=== PATIENT | male | born 1980 | race Two or more races ===

== ENCOUNTER 2019-04-14 13:19 | Inpatient (IN) | payer OTHER ==
[2019-04-14 17:44] VITALS: BMI 42.0
[2019-04-14] MEDS ORDERED: ACETAMINOPHEN 325 MG TABLET (FP) PO PRN (18:11)
[2019-04-14] MEDS ORDERED: MAG HYDROX/AL HYDROX/SIMETH 30 ML UNIT-DOSE CUP PO PRN (18:11)
[2019-04-14] MEDS ORDERED: guaiFENesin 200 MG/10 ML 10 ML UNIT-DOSE CUPS PO PRN (18:11)
[2019-04-14] MEDS ORDERED: hydrOXYzine PAMOATE 50 MG CAPSULE (FP) PO PRN (18:11)
[2019-04-14] MEDS ORDERED: MAGNESIUM HYDROX 2400MG/30ML ORAL SUSPENSION 30 ML CUP PO PRN (18:11)
[2019-04-14] MEDS ORDERED: P-EPHED 60MG/TRIPROLIDI 2.5MG TABLET PO PRN (18:11)
[2019-04-14] MEDS ORDERED: IBUPROFEN 400 MG TABLET (FP) PO PRN (18:11)
[2019-04-14] MEDS ORDERED: MAGNESIUM CITRATE 300 ML BOTTLE PO PRN (18:11)
[2019-04-14] MEDS ORDERED: LOPERAMIDE HCL 2 MG CAPSULE PO PRN (18:11)
[2019-04-14] MEDS ORDERED: MENTHOL/PHENOL 1 EACH UD MM PRN (18:11)
--- NOTE | 2019-04-14 18:16 | HP ---
CIWA Score - Admission Criteria OASAS Guidelines: Admission for Medically Managed Detox: Requires at least one of the followin. CIWA greater than 12 2. Seizures within the past 24 hours 3. Delirium tremens within the past 24 hours 4. Hallucinations within the past 24 hours 5. Acute intervention needed for co occurring medical disorder 6. Acute intervention needed for co occurring psychiatric disorder 7. Severe withdrawal that cannot be handled at a lower level of care (continued vomiting, continued diarrhea, abnormal vital signs) requiring intravenous medication and/or fluids 8. Admission ROS [facility] Chief Complaint: alcohol rehabilitation Allergies/Adverse Reactions: Allergies Allergy/AdvReac Type Severity Reaction Status Date / Time No Known Allergies Allergy Verified 04/14/19 17:30 History of Present Illness: 38 yo male with hx of chronic alcohol dependence is here seeking inpatient rehabilitation, patient referred from [facility]. Last detox and rehab January 2019 in [facility]. Patient reports he was admitted on 04/11/19 - 04/14/19 at [facility] ([facility] program). Homeless x 1 month. Patient reports no medical hx aside from obesity. Psych: Bipolar, depression, anxiety and schizophrenia. Reports hx of multiple psych admissions since age 17. 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 Patient denies SI/HI, visual or auditory hallucinations at this time. Exam Limitations: No Limitations - Ebola screening Have you traveled outside of the country in the last 21 days: No Have you had contact with anyone from an Ebola affected area: No Do you have a fever: No - Review of Systems Constitutional: Other (weight gain) EENT: reports: No Symptoms Reported Respiratory: reports: No Symptoms reported Cardiac: reports: No Symptoms Reported GI: reports: No Symptoms Reported : reports: Frequency Musculoskeletal: reports: Back Pain Integumentary: reports: No Symptoms Reported Neuro: reports: No Symptoms reported Endocrine: reports: Increased Thirst, Change in Weight Hematology: reports: No Symptoms Reported Psychiatric: reports: Orientated x3, Anxious Other Systems: Reviewed and Negative Patient History - Patient Medical History Hx Anemia: No Hx Asthma: No Hx Chronic Obstructive Pulmonary Disease (COPD): No Hx Cancer: No Hx Cardiac Disorders: No Hx Congestive Heart Failure: No Hx Hypertension: No Hx Hypercholesterolemia: No Hx Pacemaker: No HX Cerebrovascular Accident: No Hx Seizures: No Hx Diabetes: No Hx Gastrointestinal Disorders: No Hx Liver Disease: No Hx Genitourinary Disorders: No Hx Sexually Transmitted Disorders: No Hx Renal Disease (ESRD): No Hx Thyroid Disease: No Hx Human Immunodeficiency Virus (HIV): No Hx Hepatitis C: No Hx Depression: Yes Hx Suicide Attempt: Yes Hx Bipolar Disorder: Yes Hx Schizophrenia: Yes - Patient Surgical History Past Surgical History: No Hx Neurologic Surgery: No Hx Cataract Extraction: No Hx Cardiac Surgery: No Hx Lung Surgery: No Hx Breast Surgery: No Hx Breast Biopsy: No Hx Abdominal Surgery: No Hx Appendectomy: No Hx Cholecystectomy: No Hx Genitourinary Surgery: No Hx Section: No Hx Orthopedic Surgery: No Anesthesia Reaction: No - PPD History Previous Implant?: No Documented Results: Negative w/o proof Date: 07/07/13 PPD to be Administered?: Yes - Smoking Cessation Smoking history: Current every day smoker Have you smoked in the past 12 months: Yes Aproximately how many cigarettes per day: 5 Hx Chewing Tobacco Use: No Initiated information on smoking cessation: Yes 'Breaking Loose' booklet given: 04/14/19 - Substance & Tx. History Hx Alcohol Use: Yes Hx Substance Use: Yes Substance Use Type: Alcohol Hx Substance Use Treatment: Yes (Last detox and rehab January 2019 in [facility].) - Substances abused Alcohol Substance route: Oral Frequency: Daily Amount used: 6-12 12oz beer Age of first use: 13 Date of last use: 04/11/19 Family Disease History - Family Disease History Family Disease History: Other: Father (FATHER IS ETOH DEPENDENT) Admission Physical Exam BHS - Vital Signs Vital Signs: Vital Signs - 24 hr 04/14/19 17:33 Temperature 97.7 F Pulse Rate 70 Respiratory 18 Rate Blood Pressure 133/91 - Physical General Appearance: Yes: Disheveled (malodorous), Obese, Anxious HEENTM: Yes: EOMI, Hearing grossly Normal, Normal ENT Inspection, Normocephalic , Normal Voice, ROBIN, Pharynx Normal, Tm's normal Respiratory: Yes: Chest Non-Tender, Lungs Clear, Normal Breath Sounds, No Respiratory Distress, No Accessory Muscle Use Neck: Yes: Within Normal Limits Breast: Yes: Breast Exam Deferred Cardiology: Yes: Regular Rhythm, Regular Rate Abdominal: Yes: Normal Bowel Sounds, Soft, Protuberent Genitourinary: Yes: Within Normal Limits Back: Yes: Normal Inspection Musculoskeletal: Yes: full range of Motion, Gait Steady, Pelvis Stable Extremities: Yes: Normal Capillary Refill, Normal Inspection, Normal Range of Motion, Non-Tender Neurological: Yes: music worker II-XII NML intact, Fully Oriented, Alert, Motor Strength 5/5, Normal Mood/Affect, Normal Response Integumentary: Yes: Normal Color, Warm, Diaphoresis Lymphatic: Yes: Within Normal Limits - Diagnostic (1) Psychiatric disorder Current Visit: Yes Status: Suspected (2) Alcohol dependence Current Visit: Yes Status: Active (3) Obesity Current Visit: Yes Status: Active Breathalyzer - Breathalyzer Breathalyzer: 0 Urine Drug Screen - Test Device Lot number: [id number] Expiration date: 12/24/20 - Control Is test valid?: Yes - Results Drug screen NEGATIVE: Yes Inpatient Rehab Admission - Rehab Decision to Admit Inpatient rehab admission?: Yes - Initial Determination Are CD services needed?: Yes Free of communicable disease: Yes Not in need of hospitalization: Yes - Rehab Admission Criteria Previous failed treatment: Yes Poor recovery environment: Yes Comorbidities: Yes Lacks judgement: Yes Patient is meeting Inpatient Rehab admission criteria:: Yes
[2019-04-14] MEDS ORDERED: TUBERCULIN PPD 5 TU/0.1ML VIAL ID ONE (20:23)
[2019-04-14] MEDS: THIAMINE HCL 100 MG TABLET (FP) PO SCH (21:52)
[2019-04-14] MEDS ORDERED: MELATONIN 5 MG TABLETS PO PRN (22:00)
--- NOTE | 2019-04-15 10:07 | CONSULT ---
[facility] Psychiatric Consult - Data Date of interview: 04/15/19 Admission source: [facility] Identifying data: Patient is a 38 year old martiniquais engaged male, without children, unemployed, homeless, and is supported by [facility]. This is patient's second admission to rehab at [facility]. Patient admitted to for alcohol dependence. Substance Abuse History: Smoking Cessation. Smoking history: Current every day smoker. Have you smoked in the past 12 months: Yes. Aproximately how many cigarettes per day: 5. Hx Chewing Tobacco Use: No. Initiated information on smoking cessation: Yes. 'Breaking Loose' booklet given: 04/14/19. - Substance & Tx. History. Hx Alcohol Use: Yes. Hx Substance Use: Yes. Substance Use Type : Alcohol. Hx Substance Use Treatment: Yes ([facility] detox [facility] - Substances abused. Alcohol. Substance route: Oral. Frequency: Daily. Amount used: 6-12 12oz beer. Age of first use: 13. Date of last use: 04/11/19 Medical History: Obesity Psychiatric History: Patient's first psychiatric contact was at 17 years of age at [facility] after he used PCP and begun to see clowns and ferries wheels. He was admitted for six months and was prescribed multiple psychotropic medications (thorazine, clozaril, depakote and other agents). After discharge he saw a psychiatrist at the [facility] who continued patient on clozaril and depakote. Soon after, his parents recommended he fly [facility] where he lived for six months with relatives. While in the [facility] he received both inpatient and outpatient psychiatric treatment. Patient than returned to [facility] and continued treatment at the [facility]. Patient reports h/o of multiple psychiatric hospitalizations ([place], [facility] , [place], [facility], [facility], [facility], [facility], and other hospitals in [facility] except [place]). Patient reports one year of psychiatric stabilization from [id number]. States that readmissions to psychiatric facilites is due to his substance abuse history of alcohol and marijuana dependence. Mr. Joshua reports h /o [place] in which he becomes energetic, impulsive, hypersexual and functions well without sleep and when he becomes paranoid he believes that all 6 billion people in world are focused on him. Mr. Joshua reports past trials of Seroquel, haldol, thorazine, depakote, lithium, clozaril, wellbutrin, and long acting decanoate injections of haldol, invega, and prolixen. Patient is currently followed by the [facility] in [facility] and is prescribed zyprexa 10mg HS. Diagnosis of schizoaffective disorder. He reports h/o four suicide attempts (cutting wrist and overdose on Geary joel). Most recent suicide attempt was in 2017. Patient is reliable historian and is able to provide journalists and other writers with a cohesive psychiatric history. At present, patient is talkative. No depressive, manic, or psychotic symptoms noted. Physical/Sexual Abuse/Trauma History: denies. Mental Status Exam - Mental Status Exam Alert and Oriented to: Time, Place, Person Cognitive Function: Good Patient Appearance: Well Groomed Mood: Hopeful Affect: Appropriate Patient Behavior: Talkative, Cooperative Speech Pattern: Appropriate Voice Loudness: Mildly Loud Thought Process: Goal Oriented Thought Disorder: Not Present Hallucinations: Denies Suicidal Ideation: Denies Homicidal Ideation: Denies Insight/Judgement: Poor Sleep: Fair Appetite: Fair Muscle strength/Tone: Normal Gait/Station: Normal Psychiatric Findings - Problem List ([place] 1, 2,3) (1) Marijuana dependence Current Visit: Yes Status: Acute (2) Alcohol dependence Current Visit: Yes Status: Active (3) Schizoaffective disorder Current Visit: Yes Status: Chronic Qualifiers: Schizoaffective disorder type: bipolar Qualified Code(s): F25.0 - Schizoaffective disorder, bipolar type - Initial Treatment Plan Initial Treatment Plan: Psychoeducation provided. Rehab in progress. Will order Zyprexa 10mg HS. Benefits and side effects discussed. Verbal consent given.
[2019-04-15] MEDS: PRENATAL VITAMINS W/ FOLIC ACID TABLET (FP) PO SCH (10:35)
[2019-04-15 12:05] LABS: HEMATOCRIT 46.4 % (35.4-49); HEMOGLOBIN 15.2 GM/dL (11.7-16.9); MCH 28.9 pg (25.7-33.7); MCHC 32.8 g/dl (32.0-35.9); MEAN PLT VOLUME 10.2 fl (7.5-11.1); PLATELET COUNT 236 K/MM3 (134-434); RBC 5.27 M/mm3 (4.00-5.60); RDW 13.7 % (11.9-15.9); WHITE BLOOD COUNT 6.1 K/mm3 (4.0-10.0)
[2019-04-15 12:21] LABS: ALBUMIN 3.8 g/dl (3.4-5.0); BILIRUBIN,TOTAL 0.2 mg/dL (0.2-1); BLOOD UREA NITROGEN 15.4 mg/dL (7-18); CALCIUM 9.1 mg/dL (8.5-10.1); CREATININE 0.8 mg/dL (0.55-1.3); POTASSIUM 4.5 mmol/L (3.5-5.1)
--- NOTE | 2019-04-15 12:33 | EKG ---
Test Reason : Blood Pressure : / mmHG Vent. Rate : 067 BPM Atrial Rate : 067 BPM P-R Int : 206 ms QRS Dur : 104 ms QT Int : 408 ms P-R-T Axes : 045 -42 013 degrees QTc Int : 431 ms NORMAL SINUS RHYTHM LEFT AXIS DEVIATION ABNORMAL ECG NO PREVIOUS ECGS AVAILABLE Confirmed by CHRISTINA PETTY MD ([id number]) on 04/15/2019 12:33:14 PM Referred By: Confirmed By:CHRISTINA PETTY MD
[2019-04-15 15:20] LABS: PH,URINE 6.5 (5.0-8.0); URINE APPEARANCE CLOUDY; URINE BILIRUBIN NEGATIVE (NEGATIVE); URINE COLOR YELLOW; URINE GLUCOSE (UA) NEGATIVE (NEGATIVE); URINE KETONE NEGATIVE (NEGATIVE); URINE LEUK ESTERASE NEGATIVE (NEGATIVE); URINE NITRITE NEGATIVE (NEGATIVE); URINE PROTEIN NEGATIVE (NEGATIVE); URINE UROBILINOGEN 0.2 mg/dL (0.2-1.0)
[2019-04-15] MEDS: THIAMINE HCL 100 MG TABLET (FP) PO SCH (21:55)
[2019-04-15] MEDS: OLANZapine 10 MG TABLET PO SCH (21:55)
[2019-04-16] MEDS: PRENATAL VITAMINS W/ FOLIC ACID TABLET (FP) PO SCH (10:40)
[2019-04-16] MEDS: THIAMINE HCL 100 MG TABLET (FP) PO SCH (21:52)
[2019-04-16] MEDS: OLANZapine 10 MG TABLET PO SCH (21:52)
[2019-04-17] MEDS: PRENATAL VITAMINS W/ FOLIC ACID TABLET (FP) PO SCH (10:19)
[2019-04-17] MEDS: THIAMINE HCL 100 MG TABLET (FP) PO SCH (21:36)
[2019-04-17] MEDS: OLANZapine 10 MG TABLET PO SCH (21:36)
[2019-04-18] MEDS: PRENATAL VITAMINS W/ FOLIC ACID TABLET (FP) PO SCH (10:27)
[2019-04-18] MEDS: THIAMINE HCL 100 MG TABLET (FP) PO SCH (21:31)
[2019-04-18] MEDS: OLANZapine 10 MG TABLET PO SCH (21:31)
[2019-04-19] MEDS: PRENATAL VITAMINS W/ FOLIC ACID TABLET (FP) PO SCH (12:14)
[2019-04-19] MEDS: THIAMINE HCL 100 MG TABLET (FP) PO SCH (21:34)
[2019-04-19] MEDS: OLANZapine 10 MG TABLET PO SCH (21:34)
[2019-04-20] MEDS: PRENATAL VITAMINS W/ FOLIC ACID TABLET (FP) PO SCH (10:23)
[2019-04-20] MEDS: THIAMINE HCL 100 MG TABLET (FP) PO SCH (21:35)
[2019-04-20] MEDS: OLANZapine 10 MG TABLET PO SCH (21:35)
[2019-04-21] MEDS: PRENATAL VITAMINS W/ FOLIC ACID TABLET (FP) PO SCH (09:57)
[2019-04-21] MEDS: THIAMINE HCL 100 MG TABLET (FP) PO SCH (21:34)
[2019-04-21] MEDS: OLANZapine 10 MG TABLET PO SCH (21:34)
[2019-04-22] MEDS: PRENATAL VITAMINS W/ FOLIC ACID TABLET (FP) PO SCH (10:03)
[2019-04-22] MEDS: OLANZapine 10 MG TABLET PO SCH (21:45)
[2019-04-22] MEDS: THIAMINE HCL 100 MG TABLET (FP) PO SCH (21:45)
[2019-04-23] MEDS: PRENATAL VITAMINS W/ FOLIC ACID TABLET (FP) PO SCH (09:59)
[2019-04-23] MEDS: OLANZapine 10 MG TABLET PO SCH (21:40)
[2019-04-23] MEDS: THIAMINE HCL 100 MG TABLET (FP) PO SCH (21:40)
[2019-04-24] MEDS: PRENATAL VITAMINS W/ FOLIC ACID TABLET (FP) PO SCH (10:14)
[2019-04-24] MEDS: OLANZapine 10 MG TABLET PO SCH (21:42)
[2019-04-24] MEDS: THIAMINE HCL 100 MG TABLET (FP) PO SCH (21:42)
[2019-04-25] MEDS: PRENATAL VITAMINS W/ FOLIC ACID TABLET (FP) PO SCH (10:24)
[2019-04-25] MEDS: THIAMINE HCL 100 MG TABLET (FP) PO SCH (21:33)
[2019-04-25] MEDS: OLANZapine 10 MG TABLET PO SCH (21:33)
[2019-04-26] MEDS: PRENATAL VITAMINS W/ FOLIC ACID TABLET (FP) PO SCH (10:39)
[2019-04-26] MEDS: THIAMINE HCL 100 MG TABLET (FP) PO SCH (21:38)
[2019-04-26] MEDS: OLANZapine 10 MG TABLET PO SCH (21:38)
[2019-04-27] MEDS: PRENATAL VITAMINS W/ FOLIC ACID TABLET (FP) PO SCH (10:29)
--- NOTE | 2019-04-27 14:36 | PN ---
[facility] Progress Note Note: Patient is scheduled for discharge tomorrow. Script for 30 days supply of Zyprexa 10 mg/hs will be electronically transmitted to [facility] [address] [place] [address]
--- NOTE | 2019-04-27 15:07 | PN ---
[facility] Progress Note (SOAP) Subjective: PT SCHEDULED FOR ROUTINE DISCHARGE TOMORROW. PT MET WITH HIS COUNSELOR AND HAS BEEN REFERRED TO [facility] ON [address] [place], [place]. PT REPORTS HE HAS NO PRIMARY CARE PROVIDER BUT GOES TO ANY ER CLOSE TO HIS DOMICILE. ALERT O X 3. OOB AMBULATES WITH STEADY GAIT. DENIES S/H/I. Objective: 04/27/19 15:07 Vital Signs - 24 hr 04/27/19 04/27/19 00:30 06:54 Temperature 97.2 F L Pulse Rate 76 Respiratory 20 18 Rate Blood Pressure 117/78 Laboratory Tests 04/14/19 04/15/19 04/15/19 12:00 08:25 08:25 WBC 6.1 RBC 5.27 Hgb 15.2 Hct 46.4 MCV 88.0 MCH 28.9 MCHC 32.8 RDW 13.7 Plt Count 236 MPV 10.2 Sodium 140 Potassium 4.5 Chloride 106 Carbon Dioxide 29 Anion Gap 6 L BUN 15.4 Creatinine 0.8 Est GFR (CKD-EPI)AfAm 129.51 Est GFR (CKD-EPI)NonAf 111.74 Random Glucose 90 Calcium 9.1 Total Bilirubin 0.2 AST 25 ALT 43 Alkaline Phosphatase 64 Total Protein 7.0 Albumin 3.8 Urine Color Yellow Urine Appearance Cloudy Urine pH 6.5 D Ur Specific [place] 1.024 Urine Protein Negative Urine Glucose (UA) Negative Urine Ketones Negative Urine Blood Negative Urine Nitrite Negative Urine Bilirubin Negative Urine Urobilinogen 0.2 Ur Leukocyte Esterase Negative RPR Titer 04/15/19 08:25 WBC RBC Hgb Hct MCV MCH MCHC RDW Plt Count MPV Sodium Potassium Chloride Carbon Dioxide Anion Gap BUN Creatinine Est GFR (CKD-EPI)AfAm Est GFR (CKD-EPI)NonAf Random Glucose Calcium Total Bilirubin AST ALT Alkaline Phosphatase Total Protein Albumin Urine Color Urine Appearance Urine pH Ur Specific [place] Urine Protein Urine Glucose (UA) Urine Ketones Urine Blood Urine Nitrite Urine Bilirubin Urine Urobilinogen Ur Leukocyte Esterase RPR Titer Nonreactive Home Medications Medication Instructions Recorded Olanzapine 10 mg PO HS #30 tablet 04/27/19 Assessment: 04/27/19 15:08 NAD MEDICALLY STABLE All Active Problems Alcohol dependence (chronic) Obesity (chronic) Marijuana dependence (chronic) Plan: PT MAY D/C TOMORROW 04/28/19 FOLLOW UP WITH CD AFTERCARE RECOMMENDATION. FOLLOW UP WITH NEAREST EMERGENCY ROOM IF NEEDED. D/W PT TO EXPLORE PRIMARY CARE MANAGEMENT WITH A PCP AT A CLINIC NEAR HIM .
[2019-04-27] MEDS: THIAMINE HCL 100 MG TABLET (FP) PO SCH (21:41)
[2019-04-27] MEDS: OLANZapine 10 MG TABLET PO SCH (21:41)
[2019-04-28 06:40] VITALS: BP 138/95; PULSE 79; TEMP 97.9
[2019-04-28] MEDS: PRENATAL VITAMINS W/ FOLIC ACID TABLET (FP) PO SCH (10:21)
== END 2019-04-28 10:55 | disposition home or self-care (01) | DRG 772 ==
LOC: YASAS 13:19 → Y5N 18:53
PROVIDERS: ADMIT Neuromusculoskeletal Medicine & OMM; ATTEND Neuromusculoskeletal Medicine & OMM
PROC: HZ42ZZZ Group Counseling for Substance Abuse Treatment, Cognitive-Behavioral (ICD-10-PCS; principal; 2019-04-14)
DX: F10.20 Alcohol dependence, uncomplicated (principal); F12.20 Cannabis dependence, uncomplicated; F25.0 Schizoaffective disorder, bipolar type; F31.9 Bipolar disorder, unspecified; E66.9 Obesity, unspecified; Z68.41 Body mass index [BMI] 40.0-44.9, adult; Z91.5 Personal history of self-harm
CPT/HCPCS: 36415; 80053; 81003; 85027; 86593; 93005; 93010

== ENCOUNTER 2021-07-26 14:37 | Inpatient (IN) | payer OTHER ==
[2021-07-26 17:54] VITALS: BMI 40.8
[2021-07-26] MEDS ORDERED: MAG HYDROX/AL HYDROX/SIMETH 30 ML UNIT-DOSE CUP PO PRN (18:42)
[2021-07-26] MEDS ORDERED: guaiFENesin 200 MG/10 ML 10 ML UNIT-DOSE CUPS PO PRN (18:42)
[2021-07-26] MEDS ORDERED: NICOTINE 10 MG CARTRIDGE (INHALER) IH PRN (18:42)
[2021-07-26] MEDS ORDERED: MAGNESIUM HYDROX 2400MG/30ML ORAL SUSPENSION 30 ML CUP PO PRN (18:42)
[2021-07-26] MEDS ORDERED: IBUPROFEN 400 MG TABLET (FP) PO PRN (18:42)
[2021-07-26] MEDS ORDERED: ACETAMINOPHEN 325 MG TABLET (FP) PO PRN (18:42)
[2021-07-26] MEDS ORDERED: LOPERAMIDE HCL 2 MG CAPSULE PO PRN (18:42)
[2021-07-26] MEDS ORDERED: P-EPHED 60MG/TRIPROLIDI 2.5MG TABLET PO PRN (18:42)
[2021-07-26] MEDS ORDERED: NICOTINE 7 MG/24 HOURS TOPICAL PATCH TD PRN (18:42)
[2021-07-26] MEDS ORDERED: MAGNESIUM CITRATE 300 ML BOTTLE PO PRN (18:42)
[2021-07-26] MEDS: MELATONIN 5 MG TABLETS PO SCH (21:59)
[2021-07-26] MEDS: hydrOXYzine PAMOATE 25 MG CAPSULE (FP) PO SCH (21:59)
[2021-07-26] MEDS: THIAMINE HCL 100 MG TABLET (FP) PO SCH (22:00)
[2021-07-27] MEDS: hydrOXYzine PAMOATE 25 MG CAPSULE (FP) PO SCH ×5 (06:55→21:43)
[2021-07-27] MEDS ORDERED: risperiDONE 1 MG TABLET PO SCH (10:00)
[2021-07-27 10:06] LABS: HEMOGLOBIN 14.2 GM/dL (11.7-16.9); MCH 29.3 pg (25.7-33.7); MCHC 33.8 g/dl (32.0-35.9); MEAN CELL VOLUME 86.7 fl (80-96); PLATELET COUNT 246 10^3/uL (134-434); RBC 4.84 M/mm3 (4.00-5.60); RDW 14.1 % (11.9-15.9); WHITE BLOOD COUNT 8.2 K/mm3 (4.0-10.0)
[2021-07-27 10:25] LABS: ALBUMIN 3.6 g/dl (3.4-5.0); BLOOD UREA NITROGEN 15.3 mg/dL (7-18)
[2021-07-27 10:28] LABS: CREATININE 0.8 mg/dL (0.55-1.3)
[2021-07-27 10:29] LABS: BILIRUBIN,TOTAL 0.5 mg/dL (0.2-1)
[2021-07-27 10:30] LABS: TOT PROT 7.2 g/dl (6.4-8.2)
[2021-07-27] MEDS: LITHIUM CARBONATE 300 MG CAPSULE PO SCH ×2 (11:00→21:43)
[2021-07-27] MEDS: risperiDONE 1 MG TABLET PO SCH (11:01)
[2021-07-27 11:29] LABS: SYPHILIS W/ RPR CONF NON-REACTIVE (NONREACTIVE)
[2021-07-27 14:42] LABS: PH,URINE 5.5 (5.0-8.0); URINE APPEARANCE CLEAR; URINE BILIRUBIN NEGATIVE (NEGATIVE); URINE COLOR YELLOW; URINE GLUCOSE (UA) NEGATIVE (NEGATIVE); URINE KETONE NEGATIVE (NEGATIVE); URINE LEUK ESTERASE NEGATIVE (NEGATIVE); URINE NITRITE NEGATIVE (NEGATIVE); URINE PROTEIN NEGATIVE (NEGATIVE); URINE UROBILINOGEN 0.2 mg/dL (0.2-1.0)
[2021-07-27] MEDS: MELATONIN 5 MG TABLETS PO SCH (21:43)
[2021-07-27] MEDS: THIAMINE HCL 100 MG TABLET (FP) PO SCH (21:43)
[2021-07-27] MEDS: risperiDONE 2 MG TABLET PO SCH (21:45)
[2021-07-28] MEDS: hydrOXYzine PAMOATE 25 MG CAPSULE (FP) PO SCH ×5 (06:17→21:12)
[2021-07-28] MEDS ORDERED: PT OWN MED DRAWER 7, Y5N ONE ×2 (08:12→20:32)
[2021-07-28] MEDS: LITHIUM CARBONATE 300 MG CAPSULE PO SCH ×2 (09:45→21:11)
[2021-07-28] MEDS: risperiDONE 1 MG TABLET PO SCH (09:45)
[2021-07-28] MEDS: THIAMINE HCL 100 MG TABLET (FP) PO SCH (21:11)
[2021-07-28] MEDS: MELATONIN 5 MG TABLETS PO SCH (21:11)
[2021-07-28] MEDS: risperiDONE 2 MG TABLET PO SCH (21:11)
[2021-07-29] MEDS: hydrOXYzine PAMOATE 25 MG CAPSULE (FP) PO SCH ×5 (06:24→21:34)
[2021-07-29] MEDS: risperiDONE 1 MG TABLET PO SCH (09:23)
[2021-07-29] MEDS: LITHIUM CARBONATE 300 MG CAPSULE PO SCH ×2 (09:23→21:34)
[2021-07-29] MEDS ORDERED: PT OWN MED DRAWER 7, Y5N ONE (19:16)
[2021-07-29] MEDS: MELATONIN 5 MG TABLETS PO SCH (21:34)
[2021-07-29] MEDS: THIAMINE HCL 100 MG TABLET (FP) PO SCH (21:34)
[2021-07-29] MEDS: risperiDONE 2 MG TABLET PO SCH (21:34)
[2021-07-30] MEDS: hydrOXYzine PAMOATE 25 MG CAPSULE (FP) PO SCH ×5 (06:43→22:08)
[2021-07-30] MEDS: risperiDONE 1 MG TABLET PO SCH (10:00)
[2021-07-30] MEDS: LITHIUM CARBONATE 300 MG CAPSULE PO SCH ×2 (10:00→22:07)
[2021-07-30] MEDS: PRENATAL VITAMINS W/ FOLIC ACID TABLET (FP) PO SCH (10:58)
[2021-07-30] MEDS ORDERED: PT OWN MED DRAWER 7, Y5N ONE (19:34)
[2021-07-30] MEDS: risperiDONE 2 MG TABLET PO SCH (22:07)
[2021-07-30] MEDS: THIAMINE HCL 100 MG TABLET (FP) PO SCH (22:07)
[2021-07-30] MEDS: MELATONIN 5 MG TABLETS PO SCH (22:07)
[2021-07-31] MEDS: hydrOXYzine PAMOATE 25 MG CAPSULE (FP) PO SCH ×5 (06:24→21:49)
[2021-07-31] MEDS: PRENATAL VITAMINS W/ FOLIC ACID TABLET (FP) PO SCH (09:33)
[2021-07-31] MEDS: LITHIUM CARBONATE 300 MG CAPSULE PO SCH ×2 (09:33→21:48)
[2021-07-31] MEDS: risperiDONE 1 MG TABLET PO SCH (09:34)
[2021-07-31] MEDS ORDERED: PT OWN MED DRAWER 7, Y5N ONE (20:12)
[2021-07-31] MEDS: risperiDONE 2 MG TABLET PO SCH (21:48)
[2021-07-31] MEDS: THIAMINE HCL 100 MG TABLET (FP) PO SCH (21:48)
[2021-07-31] MEDS: MELATONIN 5 MG TABLETS PO SCH (21:49)
[2021-08-01] MEDS: hydrOXYzine PAMOATE 25 MG CAPSULE (FP) PO SCH (06:39)
[2021-08-01] MEDS ORDERED: PT OWN MED DRAWER 7, Y5N ONE ×2 (08:33→20:05)
[2021-08-01] MEDS: hydrOXYzine PAMOATE 25 MG CAPSULE (FP) PO PRN (09:33)
[2021-08-01] MEDS: risperiDONE 1 MG TABLET PO SCH (09:33)
[2021-08-01] MEDS: LITHIUM CARBONATE 300 MG CAPSULE PO SCH ×2 (09:33→21:08)
[2021-08-01] MEDS: PRENATAL VITAMINS W/ FOLIC ACID TABLET (FP) PO SCH (09:33)
[2021-08-01] MEDS: MELATONIN 5 MG TABLETS PO SCH (21:08)
[2021-08-01] MEDS: risperiDONE 2 MG TABLET PO SCH (21:08)
[2021-08-01] MEDS: THIAMINE HCL 100 MG TABLET (FP) PO SCH (21:08)
[2021-08-02] MEDS: hydrOXYzine PAMOATE 25 MG CAPSULE (FP) PO PRN (06:37)
[2021-08-02] MEDS ORDERED: PT OWN MED DRAWER 7, Y5N ONE ×2 (08:42→20:11)
[2021-08-02] MEDS: PRENATAL VITAMINS W/ FOLIC ACID TABLET (FP) PO SCH (09:29)
[2021-08-02] MEDS: risperiDONE 1 MG TABLET PO SCH (09:29)
[2021-08-02] MEDS: LITHIUM CARBONATE 300 MG CAPSULE PO SCH ×2 (09:29→21:42)
[2021-08-02] MEDS: MELATONIN 5 MG TABLETS PO SCH (21:42)
[2021-08-02] MEDS: THIAMINE HCL 100 MG TABLET (FP) PO SCH (21:42)
[2021-08-02] MEDS: risperiDONE 2 MG TABLET PO SCH (21:42)
[2021-08-03] MEDS: hydrOXYzine PAMOATE 25 MG CAPSULE (FP) PO PRN ×2 (06:24→21:57)
[2021-08-03] MEDS: LITHIUM CARBONATE 300 MG CAPSULE PO SCH ×2 (09:59→21:56)
[2021-08-03] MEDS: risperiDONE 1 MG TABLET PO SCH (09:59)
[2021-08-03] MEDS: PRENATAL VITAMINS W/ FOLIC ACID TABLET (FP) PO SCH (09:59)
[2021-08-03] MEDS: risperiDONE 2 MG TABLET PO SCH (21:56)
[2021-08-03] MEDS: THIAMINE HCL 100 MG TABLET (FP) PO SCH (21:56)
[2021-08-03] MEDS: MELATONIN 5 MG TABLETS PO SCH (22:05)
[2021-08-04] MEDS: hydrOXYzine PAMOATE 25 MG CAPSULE (FP) PO PRN ×2 (06:26→21:33)
[2021-08-04] MEDS: PRENATAL VITAMINS W/ FOLIC ACID TABLET (FP) PO SCH (09:50)
[2021-08-04] MEDS: risperiDONE 1 MG TABLET PO SCH (09:51)
[2021-08-04] MEDS: LITHIUM CARBONATE 300 MG CAPSULE PO SCH ×2 (09:51→21:33)
[2021-08-04] MEDS ORDERED: PT OWN MED DRAWER 7, Y5N ONE (19:31)
[2021-08-04] MEDS: risperiDONE 2 MG TABLET PO SCH (21:33)
[2021-08-04] MEDS: THIAMINE HCL 100 MG TABLET (FP) PO SCH (21:33)
[2021-08-04] MEDS: MELATONIN 5 MG TABLETS PO SCH (21:35)
[2021-08-05] MEDS: PRENATAL VITAMINS W/ FOLIC ACID TABLET (FP) PO SCH (09:29)
[2021-08-05] MEDS: LITHIUM CARBONATE 300 MG CAPSULE PO SCH ×2 (09:29→21:34)
[2021-08-05] MEDS: risperiDONE 1 MG TABLET PO SCH (09:29)
[2021-08-05] MEDS ORDERED: PT OWN MED DRAWER 7, Y5N ONE (19:22)
[2021-08-05] MEDS: THIAMINE HCL 100 MG TABLET (FP) PO SCH (21:34)
[2021-08-05] MEDS: MELATONIN 5 MG TABLETS PO SCH (21:34)
[2021-08-05] MEDS: hydrOXYzine PAMOATE 25 MG CAPSULE (FP) PO PRN (21:34)
[2021-08-05] MEDS: risperiDONE 2 MG TABLET PO SCH (21:34)
[2021-08-06] MEDS: hydrOXYzine PAMOATE 25 MG CAPSULE (FP) PO PRN (06:25)
[2021-08-06] MEDS ORDERED: PT OWN MED DRAWER 7, Y5N ONE ×2 (08:11→18:52)
[2021-08-06] MEDS: risperiDONE 1 MG TABLET PO SCH (09:55)
[2021-08-06] MEDS: LITHIUM CARBONATE 300 MG CAPSULE PO SCH ×2 (09:55→21:38)
[2021-08-06] MEDS: PRENATAL VITAMINS W/ FOLIC ACID TABLET (FP) PO SCH (09:55)
[2021-08-06] MEDS: THIAMINE HCL 100 MG TABLET (FP) PO SCH (21:38)
[2021-08-06] MEDS: risperiDONE 2 MG TABLET PO SCH (21:38)
[2021-08-06] MEDS: MELATONIN 5 MG TABLETS PO SCH (21:38)
[2021-08-07] MEDS: LITHIUM CARBONATE 300 MG CAPSULE PO SCH ×2 (09:09→21:37)
[2021-08-07] MEDS: PRENATAL VITAMINS W/ FOLIC ACID TABLET (FP) PO SCH (09:09)
[2021-08-07] MEDS: risperiDONE 1 MG TABLET PO SCH (09:09)
[2021-08-07] MEDS: hydrOXYzine PAMOATE 25 MG CAPSULE (FP) PO PRN (09:10)
[2021-08-07] MEDS ORDERED: PT OWN MED DRAWER 7, Y5N ONE (20:30)
[2021-08-07] MEDS: THIAMINE HCL 100 MG TABLET (FP) PO SCH (21:37)
[2021-08-07] MEDS: risperiDONE 2 MG TABLET PO SCH (21:37)
[2021-08-07] MEDS: MELATONIN 5 MG TABLETS PO SCH (21:38)
[2021-08-08] MEDS: hydrOXYzine PAMOATE 25 MG CAPSULE (FP) PO PRN (06:23)
[2021-08-08 06:59] VITALS: BP 125/84; PULSE 75; TEMP 97.1
[2021-08-08] MEDS: risperiDONE 1 MG TABLET PO SCH (09:30)
[2021-08-08] MEDS: PRENATAL VITAMINS W/ FOLIC ACID TABLET (FP) PO SCH (09:30)
[2021-08-08] MEDS: LITHIUM CARBONATE 300 MG CAPSULE PO SCH (09:30)
== END 2021-08-08 09:33 | disposition home or self-care (01) | DRG 772 ==
LOC: YASAS 14:37 → Y3E 19:13
PROVIDERS: ADMIT Allergy & Immunology; ATTEND Allergy & Immunology
PROC: HZ42ZZZ Group Counseling for Substance Abuse Treatment, Cognitive-Behavioral (ICD-10-PCS; principal; 2021-07-26)
DX: F10.20 Alcohol dependence, uncomplicated (principal); F14.20 Cocaine dependence, uncomplicated; F12.20 Cannabis dependence, uncomplicated; F17.210 Nicotine dependence, cigarettes, uncomplicated; F25.0 Schizoaffective disorder, bipolar type; F31.9 Bipolar disorder, unspecified; I10 Essential (primary) hypertension; E78.5 Hyperlipidemia, unspecified; M06.9 Rheumatoid arthritis, unspecified; R20.2 Paresthesia of skin; Z59.00 Homelessness unspecified
CPT/HCPCS: 36415; 80053; 80178; 81003; 85027; 86780; 86803; C9803; J2794; U0003; U0005

== ENCOUNTER 2022-05-13 16:28 | Inpatient (IN) | payer OTHER ==
[2022-05-13 18:46] VITALS: BMI 39.1
[2022-05-13] MEDS ORDERED: BISMUTH SUBSALICYLATE 524 MG/30 ML PO PRN (19:05)
[2022-05-13] MEDS ORDERED: ONDANSETRON *ODT* 4 MG TABLET SL PRN (19:05)
[2022-05-13] MEDS ORDERED: IBUPROFEN 400 MG TABLET (FP) PO PRN (19:05)
[2022-05-13] MEDS ORDERED: DICYCLOMINE HCL 10 MG CAPSULE PO PRN (19:05)
[2022-05-13] MEDS ORDERED: MAG HYDROX/AL HYDROX/SIMETH 30 ML UNIT-DOSE CUP PO PRN (19:05)
[2022-05-13] MEDS ORDERED: LOPERAMIDE HCL 2 MG CAPSULE PO PRN (19:05)
[2022-05-13] MEDS ORDERED: METHOCARBAMOL 500 MG TABLET PO PRN (19:05)
[2022-05-13] MEDS ORDERED: BENZOCAINE/MENTHOL (CHLORASEPTIC ) LOZENGE MM PRN (19:05)
[2022-05-13] MEDS ORDERED: IBUPROFEN 600 MG TABLET (FP) PO PRN (19:05)
[2022-05-13] MEDS ORDERED: ACETAMINOPHEN 325 MG TABLET (FP) PO PRN ×2 (19:05)
[2022-05-13] MEDS ORDERED: MAGNESIUM CITRATE 300 ML BOTTLE PO PRN (19:05)
[2022-05-13] MEDS ORDERED: NICOTINE 10 MG CARTRIDGE (INHALER) IH PRN (19:05)
[2022-05-13] MEDS ORDERED: MAGNESIUM HYDROX 2400MG/30ML ORAL SUSPENSION 30 ML CUP PO PRN (19:05)
[2022-05-13] MEDS: THIAMINE HCL 100 MG TABLET (FP) PO SCH (21:21)
[2022-05-13] MEDS: hydrOXYzine PAMOATE 25 MG CAPSULE (FP) PO SCH (21:21)
[2022-05-13] MEDS: MELATONIN 5 MG TABLETS PO SCH (21:22)
[2022-05-14] MEDS: hydrOXYzine PAMOATE 25 MG CAPSULE (FP) PO SCH ×5 (06:45→23:59)
[2022-05-14] MEDS: PRENATAL VITAMINS W/ FOLIC ACID TABLET (FP) PO SCH (10:15)
[2022-05-14 12:10] LABS: HEMATOCRIT 41.9 % (35.4-49); HEMOGLOBIN 13.6 GM/dL (11.7-16.9); MCH 28.4 pg (25.7-33.7); MCHC 32.6 g/dl (32.0-35.9); MEAN CELL VOLUME 87.3 fl (80-96); MEAN PLT VOLUME 9.3 fl (7.5-11.1); PLATELET COUNT 299 10^3/uL (134-434); RBC 4.79 M/mm3 (4.00-5.60); RDW 13.6 % (11.9-15.9); WHITE BLOOD COUNT 6.8 K/mm3 (4.0-10.0)
[2022-05-14 13:42] LABS: CALCIUM 9.1 mg/dL (8.5-10.1)
[2022-05-14 13:43] LABS: ALBUMIN 3.4 g/dl (3.4-5.0); BLOOD UREA NITROGEN 14.5 mg/dL (7-18)
[2022-05-14 13:46] LABS: CREATININE 0.8 mg/dL (0.55-1.3)
[2022-05-14 13:48] LABS: TOT PROT 6.8 g/dl (6.4-8.2)
[2022-05-14 14:05] LABS: BILIRUBIN,TOTAL 0.3 mg/dL (0.2-1)
[2022-05-14] MEDS ORDERED: risperiDONE 2 MG TABLET PO SCH (22:00)
[2022-05-14] MEDS: MELATONIN 5 MG TABLETS PO SCH (23:59)
[2022-05-15] MEDS: THIAMINE HCL 100 MG TABLET (FP) PO SCH
[2022-05-15] MEDS: hydrOXYzine PAMOATE 25 MG CAPSULE (FP) PO SCH ×2 (07:21→10:51)
[2022-05-15 09:51] VITALS: BP 137/97; PULSE 89; TEMP 97.1
[2022-05-15] MEDS ORDERED: risperiDONE 1 MG TABLET PO SCH (10:00)
[2022-05-15] MEDS: PRENATAL VITAMINS W/ FOLIC ACID TABLET (FP) PO SCH (10:51)
== END 2022-05-15 12:18 | disposition home or self-care (01) | DRG 774 ==
LOC: YASAS 16:28 → Y3N 20:09
PROVIDERS: ADMIT Allergy & Immunology; ATTEND Surgery
PROC: HZ2ZZZZ Detoxification Services for Substance Abuse Treatment (ICD-10-PCS; principal; 2022-05-13)
DX: F10.230 Alcohol dependence with withdrawal, uncomplicated (principal); F14.20 Cocaine dependence, uncomplicated; F12.20 Cannabis dependence, uncomplicated; F17.210 Nicotine dependence, cigarettes, uncomplicated; F25.0 Schizoaffective disorder, bipolar type; E78.5 Hyperlipidemia, unspecified; I10 Essential (primary) hypertension; M06.9 Rheumatoid arthritis, unspecified; E66.9 Obesity, unspecified; Z68.39 Body mass index [BMI] 39.0-39.9, adult; Z56.0 Unemployment, unspecified; Z59.00 Homelessness unspecified
CPT/HCPCS: 36415; 80053; 85027; 86780; C9803-CS; J2794; U0003; U0005

== ENCOUNTER 2022-08-23 14:03 | Inpatient (IN) | payer OTHER ==
[2022-08-23 14:47] VITALS: BMI 38.3
[2022-08-23] MEDS ORDERED: NALOXONE HCL (KLOXXADO) 8 MG SPRAY NS PRN (15:35)
[2022-08-23] MEDS ORDERED: IBUPROFEN 400 MG TABLET (FP) PO PRN (15:35)
[2022-08-23] MEDS ORDERED: BENZOCAINE/MENTHOL (CHLORASEPTIC ) LOZENGE MM PRN (15:35)
[2022-08-23] MEDS ORDERED: NICOTINE 10 MG CARTRIDGE (INHALER) IH PRN (15:35)
[2022-08-23] MEDS ORDERED: DICYCLOMINE HCL 10 MG CAPSULE PO PRN (15:35)
[2022-08-23] MEDS ORDERED: MAGNESIUM CITRATE 300 ML BOTTLE PO PRN (15:35)
[2022-08-23] MEDS ORDERED: MAGNESIUM HYDROX 2400MG/30ML ORAL SUSPENSION 30 ML CUP PO PRN (15:35)
[2022-08-23] MEDS ORDERED: LOPERAMIDE HCL 2 MG CAPSULE PO PRN (15:35)
[2022-08-23] MEDS ORDERED: ACETAMINOPHEN 325 MG TABLET (FP) PO PRN ×2 (15:35)
[2022-08-23] MEDS ORDERED: ONDANSETRON *ODT* 4 MG TABLET SL PRN (15:35)
[2022-08-23] MEDS ORDERED: MAG HYDROX/AL HYDROX/SIMETH 30 ML UNIT-DOSE CUP PO PRN (15:35)
[2022-08-23] MEDS ORDERED: BISMUTH SUBSALICYLATE 524 MG/30 ML PO PRN (15:35)
[2022-08-23] MEDS ORDERED: IBUPROFEN 600 MG TABLET (FP) PO PRN (15:35)
[2022-08-23] MEDS ORDERED: hydrOXYzine PAMOATE 25 MG CAPSULE (FP) PO ONE (16:39)
[2022-08-23] MEDS ORDERED: IBUPROFEN 600 MG TABLET (FP) PO ONE (16:40)
[2022-08-23] MEDS: hydrOXYzine PAMOATE 25 MG CAPSULE (FP) PO PRN (16:45)
[2022-08-23] MEDS: THIAMINE HCL 100 MG TABLET (FP) PO SCH (22:24)
[2022-08-23] MEDS: MELATONIN 5 MG TABLETS PO SCH (22:25)
[2022-08-24 09:29] LABS: HEMATOCRIT 42.2 % (35.4-49); HEMOGLOBIN 14.2 GM/dL (11.7-16.9); MCH 29.1 pg (25.7-33.7); MCHC 33.6 g/dl (32.0-35.9); MEAN CELL VOLUME 86.7 fl (80-96); MEAN PLT VOLUME 9.3 fl (7.5-11.1); PLATELET COUNT 225 10^3/uL (134-434); RBC 4.87 M/mm3 (4.00-5.60); RDW 13.4 % (11.9-15.9); WHITE BLOOD COUNT 5.3 K/mm3 (4.0-10.0)
[2022-08-24 09:58] LABS: ALBUMIN 3.2 g/dl (3.4-5.0); BLOOD UREA NITROGEN 16.5 mg/dL (7-18); CALCIUM 8.8 mg/dL (8.5-10.1)
[2022-08-24 10:01] LABS: CREATININE 0.8 mg/dL (0.55-1.3)
[2022-08-24 10:03] LABS: BILIRUBIN,TOTAL 0.3 mg/dL (0.2-1); TOT PROT 6.3 g/dl (6.4-8.2)
[2022-08-24] MEDS: PRENATAL VITAMINS W/ FOLIC ACID TABLET (FP) PO SCH (10:39)
[2022-08-24] MEDS: METHOCARBAMOL 500 MG TABLET PO PRN ×2 (10:39→22:24)
[2022-08-24] MEDS: hydrOXYzine PAMOATE 25 MG CAPSULE (FP) PO PRN (22:24)
[2022-08-24] MEDS: THIAMINE HCL 100 MG TABLET (FP) PO SCH (22:24)
[2022-08-24] MEDS: MELATONIN 5 MG TABLETS PO SCH (22:24)
[2022-08-25 10:02] VITALS: BP 146/82; PULSE 76; RESP 19; TEMP 98.1
[2022-08-25] MEDS: PRENATAL VITAMINS W/ FOLIC ACID TABLET (FP) PO SCH (10:19)
== END 2022-08-25 11:30 | disposition home or self-care (01) | DRG 775 ==
LOC: YASAS 14:03 → UNDOADMIN 16:14 → Y6N 16:14 → UNDODISIN 08-25 11:30
PROVIDERS: ADMIT Allergy & Immunology; ATTEND Surgery
PROC: HZ2ZZZZ Detoxification Services for Substance Abuse Treatment (ICD-10-PCS; principal; 2022-08-23)
DX: F10.230 Alcohol dependence with withdrawal, uncomplicated (principal); F12.20 Cannabis dependence, uncomplicated; F17.210 Nicotine dependence, cigarettes, uncomplicated; F25.0 Schizoaffective disorder, bipolar type; F19.24 Other psychoactive substance dependence with psychoactive substance-induced mood disorder; E78.5 Hyperlipidemia, unspecified; I10 Essential (primary) hypertension; M06.9 Rheumatoid arthritis, unspecified; E66.9 Obesity, unspecified; Z68.38 Body mass index [BMI] 38.0-38.9, adult; Z56.0 Unemployment, unspecified; Z59.00 Homelessness unspecified
CPT/HCPCS: 36415; 80053; 85027; 86780; 87811; C9803-CS; U0003; U0005

== ENCOUNTER 2022-12-18 17:53 | Inpatient (IN) | payer OTHER ==
[2022-12-18 19:32] VITALS: BMI 36.0
[2022-12-18] MEDS ORDERED: BISMUTH SUBSALICYLATE 524 MG/30 ML PO PRN (20:47)
[2022-12-18] MEDS ORDERED: MAGNESIUM HYDROX 2400MG/30ML ORAL SUSPENSION 30 ML CUP PO PRN (20:47)
[2022-12-18] MEDS ORDERED: POLYETHYLENE GLYCOL (HEALTHYLAX) 3350 17 GM PACKET PO PRN (20:47)
[2022-12-18] MEDS ORDERED: LOPERAMIDE HCL 2 MG CAPSULE PO PRN (20:47)
[2022-12-18] MEDS ORDERED: ONDANSETRON *ODT* 4 MG TABLET SL PRN (20:47)
[2022-12-18] MEDS ORDERED: IBUPROFEN 400 MG TABLET (FP) PO PRN (20:47)
[2022-12-18] MEDS ORDERED: ACETAMINOPHEN 325 MG TABLET (FP) PO PRN (20:47)
[2022-12-18] MEDS ORDERED: guaiFENesin 200 MG/10 ML 10 ML UNIT-DOSE CUPS PO PRN (20:47)
[2022-12-18] MEDS ORDERED: MAG HYDROX/AL HYDROX/SIMETH 30 ML UNIT-DOSE CUP PO PRN (20:47)
[2022-12-18] MEDS ORDERED: BENZOCAINE/MENTHOL (CHLORASEPTIC ) LOZENGE MM PRN (20:47)
[2022-12-18] MEDS ORDERED: P-EPHED 60MG/TRIPROLIDI 2.5MG TABLET PO PRN (20:47)
[2022-12-18] MEDS ORDERED: DICYCLOMINE HCL 10 MG CAPSULE PO PRN (20:47)
[2022-12-18] MEDS ORDERED: chlordiazePOXIDE HCL 25 MG CAPSULE PO PRN (20:49)
[2022-12-18] MEDS ORDERED: chlordiazePOXIDE HCL 25 MG CAPSULE ONE (23:25)
[2022-12-18] MEDS ORDERED: levETIRAcetam 500 MG TABLET (FP) PO ONE (23:25)
[2022-12-18] MEDS: levETIRAcetam 500 MG TABLET (FP) PO SCH (23:29)
[2022-12-18] MEDS: chlordiazePOXIDE HCL 25 MG CAPSULE PO SCH (23:29)
[2022-12-18] MEDS: THIAMINE HCL 100 MG TABLET (FP) PO SCH (23:29)
[2022-12-18] MEDS ORDERED: METOPROLOL TARTRATE 25 MG TABLET (FP) PO ONE (23:50)
[2022-12-19] MEDS: chlordiazePOXIDE HCL 25 MG CAPSULE PO SCH ×4 (04:02→22:45)
[2022-12-19] MEDS: METHOCARBAMOL 500 MG TABLET PO PRN ×2 (04:03→22:46)
[2022-12-19] MEDS: IBUPROFEN 600 MG TABLET (FP) PO PRN ×2 (04:03→17:52)
[2022-12-19] MEDS: levETIRAcetam 500 MG TABLET (FP) PO SCH ×2 (10:34→22:44)
[2022-12-19] MEDS: PRENATAL VITAMINS W/ FOLIC ACID TABLET (FP) PO SCH (10:34)
[2022-12-19] MEDS: SERTRALINE HCL 50 MG TABLET (FP) PO SCH (13:21)
[2022-12-19 13:41] LABS: HEMATOCRIT 40.4 % (35.4-49); HEMOGLOBIN 13.7 GM/dL (11.7-16.9); MCHC 33.9 g/dl (32.0-35.9); MEAN CELL VOLUME 88.5 fl (80-96); PLATELET COUNT 250 10^3/uL (134-434); RBC 4.56 M/mm3 (4.00-5.60); RDW 13.6 % (11.9-15.9); WHITE BLOOD COUNT 8.3 K/mm3 (4.0-10.0)
[2022-12-19 14:40] LABS: BLOOD UREA NITROGEN 17.3 mg/dL (7-18); CALCIUM 9.3 mg/dL (8.5-10.1)
[2022-12-19 14:41] LABS: ALBUMIN 3.8 g/dl (3.4-5.0)
[2022-12-19 14:43] LABS: CREATININE 0.8 mg/dL (0.55-1.3)
[2022-12-19 14:44] LABS: BILIRUBIN,TOTAL 0.4 mg/dL (0.2-1); TOT PROT 7.3 g/dl (6.4-8.2)
[2022-12-19] MEDS: QUEtiapine FUMARATE 100 MG TABLET (FP) PO SCH (22:44)
[2022-12-19] MEDS: THIAMINE HCL 100 MG TABLET (FP) PO SCH (22:44)
[2022-12-19] MEDS: MELATONIN 5 MG TABLETS PO PRN (22:44)
[2022-12-20] MEDS: chlordiazePOXIDE HCL 25 MG CAPSULE PO SCH ×4 (06:00→22:49)
[2022-12-20] MEDS: METHOCARBAMOL 500 MG TABLET PO PRN ×2 (07:31→17:32)
[2022-12-20] MEDS: IBUPROFEN 600 MG TABLET (FP) PO PRN (07:31)
[2022-12-20] MEDS: levETIRAcetam 500 MG TABLET (FP) PO SCH ×2 (10:13→22:49)
[2022-12-20] MEDS: PRENATAL VITAMINS W/ FOLIC ACID TABLET (FP) PO SCH (10:13)
[2022-12-20] MEDS: SERTRALINE HCL 50 MG TABLET (FP) PO SCH (10:13)
[2022-12-20] MEDS: ACETAMINOPHEN 325 MG TABLET (FP) PO PRN (17:32)
[2022-12-20] MEDS: MELATONIN 5 MG TABLETS PO PRN (22:49)
[2022-12-20] MEDS: QUEtiapine FUMARATE 100 MG TABLET (FP) PO SCH (22:49)
[2022-12-20] MEDS: THIAMINE HCL 100 MG TABLET (FP) PO SCH (22:50)
[2022-12-21] MEDS ORDERED: chlordiazePOXIDE HCL 10 MG CAPSULE PO PRN
[2022-12-21] MEDS: chlordiazePOXIDE HCL 10 MG CAPSULE PO SCH ×4 (05:55→22:49)
[2022-12-21] MEDS: IBUPROFEN 600 MG TABLET (FP) PO PRN (06:04)
[2022-12-21] MEDS: METHOCARBAMOL 500 MG TABLET PO PRN (06:04)
[2022-12-21] MEDS: SERTRALINE HCL 50 MG TABLET (FP) PO SCH (10:31)
[2022-12-21] MEDS: levETIRAcetam 500 MG TABLET (FP) PO SCH ×2 (10:31→22:46)
[2022-12-21] MEDS: PRENATAL VITAMINS W/ FOLIC ACID TABLET (FP) PO SCH (10:31)
[2022-12-21] MEDS: MELATONIN 5 MG TABLETS PO PRN (22:46)
[2022-12-21] MEDS: QUEtiapine FUMARATE 100 MG TABLET (FP) PO SCH (22:46)
[2022-12-21] MEDS: THIAMINE HCL 100 MG TABLET (FP) PO SCH (22:46)
[2022-12-22] MEDS: chlordiazePOXIDE HCL 10 MG CAPSULE PO SCH ×2 (05:49→17:43)
[2022-12-22] MEDS: METHOCARBAMOL 500 MG TABLET PO PRN (10:23)
[2022-12-22] MEDS: levETIRAcetam 500 MG TABLET (FP) PO SCH ×2 (10:23→22:36)
[2022-12-22] MEDS: SERTRALINE HCL 50 MG TABLET (FP) PO SCH (10:24)
[2022-12-22] MEDS: ACETAMINOPHEN 325 MG TABLET (FP) PO PRN (10:25)
[2022-12-22] MEDS: PRENATAL VITAMINS W/ FOLIC ACID TABLET (FP) PO SCH (10:25)
[2022-12-22] MEDS: amLODIPine BESYLATE 5 MG TABLET (FP) PO SCH (17:43)
[2022-12-22] MEDS: QUEtiapine FUMARATE 100 MG TABLET (FP) PO SCH (22:36)
[2022-12-22] MEDS: THIAMINE HCL 100 MG TABLET (FP) PO SCH (22:36)
[2022-12-22] MEDS: MELATONIN 5 MG TABLETS PO PRN (22:36)
[2022-12-23] MEDS ORDERED: chlordiazePOXIDE HCL 10 MG CAPSULE PO ONE (05:00)
[2022-12-23 09:52] VITALS: BP 154/89; PULSE 91; RESP 18; TEMP 97.8
[2022-12-23] MEDS: levETIRAcetam 500 MG TABLET (FP) PO SCH (10:27)
[2022-12-23] MEDS: amLODIPine BESYLATE 5 MG TABLET (FP) PO SCH (10:27)
[2022-12-23] MEDS: PRENATAL VITAMINS W/ FOLIC ACID TABLET (FP) PO SCH (10:27)
[2022-12-23] MEDS: SERTRALINE HCL 50 MG TABLET (FP) PO SCH (10:27)
== END 2022-12-23 10:48 | disposition other institution (70) | DRG 774 ==
LOC: YASAS 17:53 → Y3N 23:11
PROVIDERS: ADMIT Allergy & Immunology; ATTEND Surgery
PROC: HZ2ZZZZ Detoxification Services for Substance Abuse Treatment (ICD-10-PCS; principal; 2022-12-18)
DX: F10.230 Alcohol dependence with withdrawal, uncomplicated (principal); F14.20 Cocaine dependence, uncomplicated; F12.20 Cannabis dependence, uncomplicated; F17.210 Nicotine dependence, cigarettes, uncomplicated; F10.982 Alcohol use, unspecified with alcohol-induced sleep disorder; F25.1 Schizoaffective disorder, depressive type; F32.A Depression, unspecified; I10 Essential (primary) hypertension; E78.5 Hyperlipidemia, unspecified; M06.9 Rheumatoid arthritis, unspecified; Z56.0 Unemployment, unspecified; Z59.00 Homelessness unspecified
CPT/HCPCS: 36415; 80053; 85027; 86780; 87811; C9803-CS; U0003; U0005

== ENCOUNTER 2023-04-13 11:08 | Inpatient (IN) | payer OTHER ==
[2023-04-13 11:44] VITALS: BMI 38.2
[2023-04-13] MEDS ORDERED: IBUPROFEN 400 MG TABLET (FP) PO PRN (16:22)
[2023-04-13] MEDS ORDERED: BENZOCAINE/MENTHOL (CHLORASEPTIC ) LOZENGE MM PRN (16:22)
[2023-04-13] MEDS ORDERED: hydrOXYzine PAMOATE 25 MG CAPSULE (FP) PO PRN (16:22)
[2023-04-13] MEDS ORDERED: MAG HYDROX/AL HYDROX/SIMETH 30 ML UNIT-DOSE CUP PO PRN (16:22)
[2023-04-13] MEDS ORDERED: NICOTINE 10 MG CARTRIDGE (INHALER) IH PRN (16:22)
[2023-04-13] MEDS ORDERED: COLLOIDAL OATMEAL 1 BAR EACH TP PRN (16:22)
[2023-04-13] MEDS ORDERED: NALOXONE HCL 0.4 MG/ML VIAL IM PRN (16:22)
[2023-04-13] MEDS ORDERED: LOPERAMIDE HCL 2 MG CAPSULE PO PRN (16:22)
[2023-04-13] MEDS ORDERED: AMMONIUM LACTATE 12% LOTION 225 GM BOTTLE TP PRN (16:22)
[2023-04-13] MEDS ORDERED: MAGNESIUM HYDROX 2400MG/30ML ORAL SUSPENSION 30 ML CUP PO PRN (16:22)
[2023-04-13] MEDS ORDERED: ACETAMINOPHEN 325 MG TABLET (FP) PO PRN (16:22)
[2023-04-13] MEDS ORDERED: POLYETHYLENE GLYCOL (HEALTHYLAX) 3350 17 GM PACKET PO PRN (16:22)
[2023-04-13] MEDS ORDERED: NALOXONE HCL (KLOXXADO) 8 MG SPRAY NS PRN (16:22)
[2023-04-13] MEDS ORDERED: guaiFENesin 600 MG TABLET.ER (FP) PO PRN (16:22)
[2023-04-13] MEDS ORDERED: BENZONATATE 200 MG CAPSULE PO PRN (16:22)
[2023-04-13] MEDS: MELATONIN 5 MG TABLETS PO SCH (21:51)
[2023-04-13] MEDS: THIAMINE HCL 100 MG TABLET (FP) PO SCH (21:51)
[2023-04-13 23:00] LABS: URINE APPEARANCE CLEAR; URINE BILIRUBIN NEGATIVE (NEGATIVE); URINE COLOR YELLOW; URINE GLUCOSE (UA) NEGATIVE (NEGATIVE); URINE KETONE NEGATIVE (NEGATIVE); URINE LEUK ESTERASE NEGATIVE (NEGATIVE); URINE NITRITE NEGATIVE (NEGATIVE); URINE PROTEIN NEGATIVE (NEGATIVE)
[2023-04-14] MEDS: PRENATAL VITAMINS W/ FOLIC ACID TABLET (FP) PO SCH (09:56)
[2023-04-14] MEDS: QUEtiapine FUMARATE 100 MG TABLET (FP) PO SCH (22:17)
[2023-04-14] MEDS: MELATONIN 5 MG TABLETS PO SCH (22:17)
[2023-04-14] MEDS: THIAMINE HCL 100 MG TABLET (FP) PO SCH (22:17)
[2023-04-15] MEDS: PRENATAL VITAMINS W/ FOLIC ACID TABLET (FP) PO SCH (09:38)
[2023-04-15] MEDS: IBUPROFEN 600 MG TABLET (FP) PO PRN (09:38)
[2023-04-15 12:12] LABS: HEMATOCRIT 45.4 % (35.4-49); HEMOGLOBIN 14.8 GM/dL (11.7-16.9); MCH 28.8 pg (25.7-33.7); MCHC 32.5 g/dl (32.0-35.9); MEAN CELL VOLUME 88.5 fl (80-96); MEAN PLT VOLUME 9.9 fl (7.5-11.1); PLATELET COUNT 258 10^3/uL (134-434); RBC 5.14 M/mm3 (4.00-5.60); RDW 13.6 % (11.9-15.9); WHITE BLOOD COUNT 6.2 K/mm3 (4.0-10.0)
[2023-04-15 12:50] LABS: POTASSIUM 4.7 mmol/L (3.5-5.1)
[2023-04-15 12:52] LABS: CALCIUM 9.3 mg/dL (8.5-10.1)
[2023-04-15 12:53] LABS: ALBUMIN 3.9 g/dl (3.4-5.0); BLOOD UREA NITROGEN 13.8 mg/dL (7-18)
[2023-04-15 12:56] LABS: BILIRUBIN,TOTAL 0.3 mg/dL (0.2-1); CREATININE 0.9 mg/dL (0.55-1.3)
[2023-04-15 12:58] LABS: TOT PROT 7.3 g/dl (6.4-8.2)
[2023-04-15] MEDS: THIAMINE HCL 100 MG TABLET (FP) PO SCH (21:24)
[2023-04-15] MEDS: MELATONIN 5 MG TABLETS PO SCH (21:24)
[2023-04-15] MEDS: QUEtiapine FUMARATE 100 MG TABLET (FP) PO SCH (21:24)
[2023-04-16] MEDS: PRENATAL VITAMINS W/ FOLIC ACID TABLET (FP) PO SCH (10:34)
[2023-04-16] MEDS: IBUPROFEN 600 MG TABLET (FP) PO PRN (17:23)
[2023-04-16] MEDS: THIAMINE HCL 100 MG TABLET (FP) PO SCH (21:29)
[2023-04-16] MEDS: QUEtiapine FUMARATE 100 MG TABLET (FP) PO SCH (21:29)
[2023-04-16] MEDS: MELATONIN 5 MG TABLETS PO SCH (21:29)
[2023-04-17] MEDS: PRENATAL VITAMINS W/ FOLIC ACID TABLET (FP) PO SCH (10:30)
[2023-04-17] MEDS: THIAMINE HCL 100 MG TABLET (FP) PO SCH (21:23)
[2023-04-17] MEDS: QUEtiapine FUMARATE 100 MG TABLET (FP) PO SCH (21:23)
[2023-04-17] MEDS: MELATONIN 5 MG TABLETS PO SCH (21:23)
[2023-04-18] MEDS: PRENATAL VITAMINS W/ FOLIC ACID TABLET (FP) PO SCH (09:32)
[2023-04-18] MEDS: THIAMINE HCL 100 MG TABLET (FP) PO SCH (21:18)
[2023-04-18] MEDS: MELATONIN 5 MG TABLETS PO SCH (21:19)
[2023-04-18] MEDS: QUEtiapine FUMARATE 100 MG TABLET (FP) PO SCH (21:19)
[2023-04-19 06:58] VITALS: RESP 18
[2023-04-19] MEDS: PRENATAL VITAMINS W/ FOLIC ACID TABLET (FP) PO SCH (09:23)
[2023-04-19] MEDS: THIAMINE HCL 100 MG TABLET (FP) PO SCH (21:19)
[2023-04-19] MEDS: QUEtiapine FUMARATE 100 MG TABLET (FP) PO SCH (21:20)
[2023-04-19] MEDS: MELATONIN 5 MG TABLETS PO SCH (21:20)
[2023-04-20 06:55] VITALS: PULSE 74
[2023-04-20] MEDS: PRENATAL VITAMINS W/ FOLIC ACID TABLET (FP) PO SCH (10:00)
[2023-04-20] MEDS: IBUPROFEN 600 MG TABLET (FP) PO PRN (10:01)
[2023-04-20 20:36] VITALS: BP 163/120; TEMP 96.6
[2023-04-20] MEDS: MELATONIN 5 MG TABLETS PO SCH (23:01)
[2023-04-20] MEDS: THIAMINE HCL 100 MG TABLET (FP) PO SCH (23:02)
[2023-04-20] MEDS: QUEtiapine FUMARATE 100 MG TABLET (FP) PO SCH (23:02)
== END 2023-04-20 20:55 | disposition hospice, inpatient (51) | DRG 772 ==
LOC: YASAS 11:08 → Y3E 17:23 → Y5N 17:48 → Y3E 17:52
PROVIDERS: ADMIT Allergy & Immunology; ATTEND Psychiatry & Neurology Pain Medicine
PROC: HZ42ZZZ Group Counseling for Substance Abuse Treatment, Cognitive-Behavioral (ICD-10-PCS; principal; 2023-04-13)
DX: F10.20 Alcohol dependence, uncomplicated (principal); F12.20 Cannabis dependence, uncomplicated; F10.280 Alcohol dependence with alcohol-induced anxiety disorder; F25.1 Schizoaffective disorder, depressive type; E78.5 Hyperlipidemia, unspecified; I10 Essential (primary) hypertension; M06.9 Rheumatoid arthritis, unspecified; E66.9 Obesity, unspecified; Z68.38 Body mass index [BMI] 38.0-38.9, adult
CPT/HCPCS: 36415; 80053; 81003; 85027; 86780; 86803; 87635; 87811

== ENCOUNTER 2023-09-01 11:39 | Inpatient (IN) | payer OTHER ==
[2023-09-01 13:43] VITALS: BMI 37.3
[2023-09-01] MEDS ORDERED: MAG HYDROX/AL HYDROX/SIMETH 30 ML UNIT-DOSE CUP PO PRN (14:08)
[2023-09-01] MEDS ORDERED: POLYETHYLENE GLYCOL (HEALTHYLAX) 3350 17 GM PACKET PO PRN (14:08)
[2023-09-01] MEDS ORDERED: BISMUTH SUBSALICYLATE 262 MG/15 ML BTL PO PRN (14:08)
[2023-09-01] MEDS ORDERED: IBUPROFEN 400 MG TABLET (FP) PO PRN (14:08)
[2023-09-01] MEDS ORDERED: LOPERAMIDE HCL 2 MG CAPSULE PO PRN (14:08)
[2023-09-01] MEDS ORDERED: NALOXONE HCL 0.4 MG/ML VIAL IM PRN (14:08)
[2023-09-01] MEDS ORDERED: NALOXONE HCL (KLOXXADO) 8 MG SPRAY NS PRN (14:08)
[2023-09-01] MEDS ORDERED: IBUPROFEN 600 MG TABLET (FP) PO PRN (14:08)
[2023-09-01] MEDS ORDERED: MAGNESIUM HYDROX 2400MG/30ML ORAL SUSPENSION 30 ML CUP PO PRN (14:08)
[2023-09-01] MEDS ORDERED: ACETAMINOPHEN 325 MG TABLET (FP) PO PRN (14:08)
[2023-09-01] MEDS ORDERED: ONDANSETRON *ODT* 4 MG TABLET SL PRN (14:08)
[2023-09-01] MEDS ORDERED: BENZONATATE 200 MG CAPSULE PO PRN (14:08)
[2023-09-01] MEDS ORDERED: BENZOCAINE/MENTHOL (CHLORASEPTIC ) LOZENGE MM PRN (14:08)
[2023-09-01] MEDS ORDERED: NICOTINE POLACRILEX 2 MG GUM BUC PRN (14:08)
[2023-09-01] MEDS ORDERED: METHOCARBAMOL 500 MG TABLET PO PRN (14:08)
[2023-09-01] MEDS ORDERED: guaiFENesin 600 MG TABLET.ER (FP) PO PRN (14:08)
[2023-09-01] MEDS: MELATONIN 5 MG TABLETS PO SCH (22:29)
[2023-09-01] MEDS: THIAMINE HCL 100 MG TABLET (FP) PO SCH (22:29)
[2023-09-02] MEDS: risperiDONE 1 MG TABLET PO SCH ×2 (10:19→22:55)
[2023-09-02] MEDS: PRENATAL VITAMINS W/ FOLIC ACID TABLET (FP) PO SCH (10:19)
[2023-09-02] MEDS: NICOTINE 14 MG/24 HOURS TOPICAL PATCH TD SCH (10:19)
[2023-09-02] MEDS: hydrOXYzine PAMOATE 25 MG CAPSULE (FP) PO PRN (10:20)
[2023-09-02] MEDS ORDERED: chlordiazePOXIDE HCL 25 MG CAPSULE PO PRN (10:33)
[2023-09-02] MEDS: chlordiazePOXIDE HCL 25 MG CAPSULE PO SCH ×3 (11:13→22:57)
[2023-09-02] MEDS: MELATONIN 5 MG TABLETS PO SCH (22:55)
[2023-09-02] MEDS: THIAMINE HCL 100 MG TABLET (FP) PO SCH (22:56)
[2023-09-03] MEDS: chlordiazePOXIDE HCL 25 MG CAPSULE PO SCH ×4 (05:50→23:09)
[2023-09-03] MEDS: PRENATAL VITAMINS W/ FOLIC ACID TABLET (FP) PO SCH (10:19)
[2023-09-03] MEDS: risperiDONE 1 MG TABLET PO SCH ×2 (10:19→23:09)
[2023-09-03] MEDS: NICOTINE 14 MG/24 HOURS TOPICAL PATCH TD SCH (10:47)
[2023-09-03] MEDS: amLODIPine BESYLATE 10 MG TABLET (FP) PO SCH (10:59)
[2023-09-03] MEDS: MELATONIN 5 MG TABLETS PO SCH (23:08)
[2023-09-03] MEDS: THIAMINE HCL 100 MG TABLET (FP) PO SCH (23:09)
[2023-09-04] MEDS ORDERED: chlordiazePOXIDE HCL 10 MG CAPSULE PO PRN
[2023-09-04] MEDS: chlordiazePOXIDE HCL 10 MG CAPSULE PO SCH ×4 (05:59→23:17)
[2023-09-04] MEDS: NICOTINE 14 MG/24 HOURS TOPICAL PATCH TD SCH (10:22)
[2023-09-04] MEDS: PRENATAL VITAMINS W/ FOLIC ACID TABLET (FP) PO SCH (10:22)
[2023-09-04] MEDS: amLODIPine BESYLATE 10 MG TABLET (FP) PO SCH (10:23)
[2023-09-04] MEDS: risperiDONE 1 MG TABLET PO SCH ×2 (10:23→23:17)
[2023-09-04] MEDS: hydrOXYzine PAMOATE 25 MG CAPSULE (FP) PO PRN (10:24)
[2023-09-04] MEDS: THIAMINE HCL 100 MG TABLET (FP) PO SCH (23:17)
[2023-09-04] MEDS: MELATONIN 5 MG TABLETS PO SCH (23:17)
[2023-09-05] MEDS: chlordiazePOXIDE HCL 10 MG CAPSULE PO SCH ×2 (05:55→17:15)
[2023-09-05] MEDS: PRENATAL VITAMINS W/ FOLIC ACID TABLET (FP) PO SCH (10:22)
[2023-09-05] MEDS: NICOTINE 14 MG/24 HOURS TOPICAL PATCH TD SCH (10:22)
[2023-09-05] MEDS: risperiDONE 1 MG TABLET PO SCH ×2 (10:23→23:05)
[2023-09-05] MEDS: amLODIPine BESYLATE 10 MG TABLET (FP) PO SCH (10:23)
[2023-09-05] MEDS: THIAMINE HCL 100 MG TABLET (FP) PO SCH (23:05)
[2023-09-05] MEDS: MELATONIN 5 MG TABLETS PO SCH (23:05)
[2023-09-06] MEDS ORDERED: chlordiazePOXIDE HCL 10 MG CAPSULE PO ONE (05:00)
[2023-09-06 09:26] VITALS: BP 147/94; PULSE 86; RESP 16; TEMP 97.7
[2023-09-06] MEDS: amLODIPine BESYLATE 10 MG TABLET (FP) PO SCH (10:16)
[2023-09-06] MEDS: NICOTINE 14 MG/24 HOURS TOPICAL PATCH TD SCH (10:16)
[2023-09-06] MEDS: risperiDONE 1 MG TABLET PO SCH (10:16)
[2023-09-06] MEDS: PRENATAL VITAMINS W/ FOLIC ACID TABLET (FP) PO SCH (10:16)
== END 2023-09-06 11:45 | disposition home or self-care (01) | DRG 775 ==
LOC: YASAS 11:39 → Y6N 15:03
PROVIDERS: ADMIT Allergy & Immunology; ATTEND Surgery
PROC: HZ2ZZZZ Detoxification Services for Substance Abuse Treatment (ICD-10-PCS; principal; 2023-09-01)
DX: F10.230 Alcohol dependence with withdrawal, uncomplicated (principal); F12.20 Cannabis dependence, uncomplicated; F17.210 Nicotine dependence, cigarettes, uncomplicated; F25.1 Schizoaffective disorder, depressive type; F10.280 Alcohol dependence with alcohol-induced anxiety disorder; F10.282 Alcohol dependence with alcohol-induced sleep disorder; F10.24 Alcohol dependence with alcohol-induced mood disorder; E78.5 Hyperlipidemia, unspecified; I10 Essential (primary) hypertension; M06.9 Rheumatoid arthritis, unspecified; Z56.0 Unemployment, unspecified; Z59.00 Homelessness unspecified
CPT/HCPCS: 36415; 80307; 87635; 87811; 93005; 93010

== ENCOUNTER 2023-10-30 14:11 | Inpatient (IN) | payer OTHER ==
[2023-10-30 15:07] VITALS: BMI 36.0
[2023-10-30] MEDS ORDERED: ACETAMINOPHEN 325 MG TABLET (FP) PO PRN (16:10)
[2023-10-30] MEDS ORDERED: MAGNESIUM HYDROX 2400MG/30ML ORAL SUSPENSION 30 ML CUP PO PRN (16:10)
[2023-10-30] MEDS ORDERED: ONDANSETRON *ODT* 4 MG TABLET SL PRN (16:10)
[2023-10-30] MEDS ORDERED: LOPERAMIDE HCL 2 MG CAPSULE PO PRN (16:10)
[2023-10-30] MEDS ORDERED: MAG HYDROX/AL HYDROX/SIMETH 30 ML UNIT-DOSE CUP PO PRN (16:10)
[2023-10-30] MEDS ORDERED: BENZONATATE 200 MG CAPSULE PO PRN (16:10)
[2023-10-30] MEDS ORDERED: guaiFENesin 600 MG TABLET.ER (FP) PO PRN (16:10)
[2023-10-30] MEDS ORDERED: DICYCLOMINE HCL 10 MG CAPSULE PO PRN (16:10)
[2023-10-30] MEDS ORDERED: IBUPROFEN 400 MG TABLET (FP) PO PRN (16:10)
[2023-10-30] MEDS ORDERED: chlordiazePOXIDE HCL 25 MG CAPSULE PO PRN (16:10)
[2023-10-30] MEDS ORDERED: NALOXONE HCL 0.4 MG/ML VIAL IM PRN (16:10)
[2023-10-30] MEDS ORDERED: BISMUTH SUBSALICYLATE 524 MG/30 ML PO PRN (16:10)
[2023-10-30] MEDS ORDERED: NALOXONE HCL (KLOXXADO) 8 MG SPRAY NS PRN (16:10)
[2023-10-30] MEDS ORDERED: BENZOCAINE/MENTHOL (CHLORASEPTIC ) LOZENGE MM PRN (16:10)
[2023-10-30] MEDS ORDERED: POLYETHYLENE GLYCOL (HEALTHYLAX) 3350 17 GM PACKET PO PRN (16:10)
[2023-10-30] MEDS: NICOTINE 7 MG/24 HOURS TOPICAL PATCH TD SCH (18:06)
[2023-10-30] MEDS: PRENATAL VITAMINS W/ FOLIC ACID TABLET (FP) PO SCH (18:07)
[2023-10-30] MEDS: MELATONIN 5 MG TABLETS PO SCH (22:44)
[2023-10-30] MEDS: METHOCARBAMOL 500 MG TABLET PO PRN (22:45)
[2023-10-30] MEDS: hydrOXYzine PAMOATE 25 MG CAPSULE (FP) PO PRN (22:45)
[2023-10-30] MEDS: THIAMINE HCL 100 MG TABLET (FP) PO SCH (22:45)
[2023-10-30] MEDS: chlordiazePOXIDE HCL 25 MG CAPSULE PO SCH (22:47)
[2023-10-31] MEDS: chlordiazePOXIDE HCL 25 MG CAPSULE PO SCH ×4 (05:08→22:31)
[2023-10-31] MEDS: IBUPROFEN 600 MG TABLET (FP) PO PRN ×2 (05:09→17:57)
[2023-10-31] MEDS: PRENATAL VITAMINS W/ FOLIC ACID TABLET (FP) PO SCH (10:54)
[2023-10-31] MEDS: NICOTINE 7 MG/24 HOURS TOPICAL PATCH TD SCH (10:55)
[2023-10-31] MEDS: risperiDONE 1 MG TABLET PO SCH ×2 (11:13→22:30)
[2023-10-31] MEDS: MELATONIN 5 MG TABLETS PO SCH (22:30)
[2023-10-31] MEDS: GABAPENTIN 100 MG CAPSULE PO SCH (22:30)
[2023-10-31] MEDS: THIAMINE HCL 100 MG TABLET (FP) PO SCH (22:31)
[2023-10-31] MEDS: METHOCARBAMOL 500 MG TABLET PO PRN (22:33)
[2023-10-31] MEDS: hydrOXYzine PAMOATE 25 MG CAPSULE (FP) PO PRN (22:33)
[2023-11-01] MEDS: GABAPENTIN 100 MG CAPSULE PO SCH ×3 (06:00→22:41)
[2023-11-01] MEDS: chlordiazePOXIDE HCL 25 MG CAPSULE PO SCH ×4 (06:01→22:42)
[2023-11-01] MEDS: risperiDONE 1 MG TABLET PO SCH ×2 (10:20→22:42)
[2023-11-01] MEDS: PRENATAL VITAMINS W/ FOLIC ACID TABLET (FP) PO SCH (10:20)
[2023-11-01] MEDS: NICOTINE 7 MG/24 HOURS TOPICAL PATCH TD SCH (10:20)
[2023-11-01] MEDS: IBUPROFEN 600 MG TABLET (FP) PO PRN (13:44)
[2023-11-01 20:40] VITALS: RESP 18
[2023-11-01] MEDS: MELATONIN 5 MG TABLETS PO SCH (22:41)
[2023-11-01] MEDS: THIAMINE HCL 100 MG TABLET (FP) PO SCH (22:41)
[2023-11-01] MEDS: METHOCARBAMOL 500 MG TABLET PO PRN (22:44)
[2023-11-01] MEDS: hydrOXYzine PAMOATE 25 MG CAPSULE (FP) PO PRN (22:44)
[2023-11-02] MEDS ORDERED: chlordiazePOXIDE HCL 10 MG CAPSULE PO PRN
[2023-11-02 00:54] VITALS: BP 143/88; PULSE 73; TEMP 97.8
[2023-11-02] MEDS ORDERED: chlordiazePOXIDE HCL 10 MG CAPSULE PO SCH (05:00)
[2023-11-03] MEDS ORDERED: chlordiazePOXIDE HCL 10 MG CAPSULE PO SCH (05:00)
[2023-11-04] MEDS ORDERED: chlordiazePOXIDE HCL 10 MG CAPSULE PO ONE (05:00)
== END 2023-11-02 01:30 | disposition left against medical advice (07) | DRG 770 ==
LOC: YASAS 14:11 → Y3N 16:24
PROVIDERS: ADMIT Allergy & Immunology; ATTEND Surgery
PROC: HZ2ZZZZ Detoxification Services for Substance Abuse Treatment (ICD-10-PCS; principal; 2023-10-30)
DX: F10.230 Alcohol dependence with withdrawal, uncomplicated (principal); F12.20 Cannabis dependence, uncomplicated; F17.210 Nicotine dependence, cigarettes, uncomplicated; F10.282 Alcohol dependence with alcohol-induced sleep disorder; F10.280 Alcohol dependence with alcohol-induced anxiety disorder; F10.24 Alcohol dependence with alcohol-induced mood disorder; F31.9 Bipolar disorder, unspecified; G47.00 Insomnia, unspecified; E78.5 Hyperlipidemia, unspecified; I10 Essential (primary) hypertension; M06.9 Rheumatoid arthritis, unspecified
CPT/HCPCS: 87635; 87811; 93005; 93010

== ENCOUNTER 2024-03-18 13:55 | Inpatient (IN) | payer OTHER ==
[2024-03-18 14:33] VITALS: BMI 39.1
[2024-03-18] MEDS ORDERED: MAG HYDROX/AL HYDROX/SIMETH 30 ML UNIT-DOSE CUP PO PRN (14:51)
[2024-03-18] MEDS ORDERED: hydrOXYzine PAMOATE 25 MG CAPSULE (FP) PO PRN (14:51)
[2024-03-18] MEDS ORDERED: MAGNESIUM HYDROX 2400MG/30ML ORAL SUSPENSION 30 ML CUP PO PRN (14:51)
[2024-03-18] MEDS ORDERED: POLYETHYLENE GLYCOL (HEALTHYLAX) 3350 17 GM PACKET PO PRN (14:51)
[2024-03-18] MEDS ORDERED: NICOTINE POLACRILEX 2 MG GUM BUC PRN (14:51)
[2024-03-18] MEDS ORDERED: DOCUSATE SODIUM 100 MG CAPSULE (FP) PO PRN (14:51)
[2024-03-18] MEDS ORDERED: LOPERAMIDE HCL 2 MG CAPSULE PO PRN (14:51)
[2024-03-18] MEDS ORDERED: NICOTINE POLACRILEX 2 MG LOZENGE BC PRN (14:51)
[2024-03-18] MEDS ORDERED: guaiFENesin 600 MG TABLET.ER (FP) PO PRN (14:51)
[2024-03-18] MEDS ORDERED: IBUPROFEN 400 MG TABLET (FP) PO PRN (14:51)
[2024-03-18] MEDS ORDERED: ACETAMINOPHEN 325 MG TABLET (FP) PO PRN (14:51)
[2024-03-18] MEDS ORDERED: BENZONATATE 200 MG CAPSULE PO PRN (14:51)
[2024-03-18] MEDS ORDERED: BENZOCAINE/MENTHOL (CHLORASEPTIC ) LOZENGE MM PRN (14:51)
[2024-03-18] MEDS: MELATONIN 5 MG TABLETS PO SCH (22:34)
[2024-03-18] MEDS: THIAMINE 100 MG TABLET PO SCH (22:35)
[2024-03-19] MEDS: PRENATAL VITAMINS W/ FOLIC ACID TABLET (FP) PO SCH (10:36)
[2024-03-19] MEDS: IBUPROFEN 600 MG TABLET (FP) PO PRN (10:36)
[2024-03-19] MEDS: ARIPiprazole 5 MG TABLET PO SCH (10:36)
[2024-03-19] MEDS: SERTRALINE HCL 25 MG TABLET (FP) PO SCH (10:36)
[2024-03-19 11:48] LABS: HEMATOCRIT 41.9 % (35.4-49); HEMOGLOBIN 14.4 GM/dL (11.7-16.9); MCH 29.6 pg (25.7-33.7); MCHC 34.4 g/dl (32.0-35.9); MEAN CELL VOLUME 86.2 fl (80-96); MEAN PLT VOLUME 8.7 fl (7.5-11.1); PLATELET COUNT 266 10^3/uL (134-434); RBC 4.86 M/mm3 (4.00-5.60); RDW 13.4 % (11.9-15.9); WHITE BLOOD COUNT 7.5 K/mm3 (4.0-10.0)
[2024-03-19 11:57] LABS: POTASSIUM 4.3 mmol/L (3.5-5.1)
[2024-03-19 12:04] LABS: ALBUMIN 3.6 g/dl (3.4-5.0); BLOOD UREA NITROGEN 15.7 mg/dL (7-18); CREATININE 0.8 mg/dL (0.55-1.3)
[2024-03-19 12:05] LABS: BILIRUBIN,TOTAL 0.4 mg/dL (0.2-1)
[2024-03-19 13:45] VITALS: RESP 19
[2024-03-20 03:37] VITALS: BP 142/100; PULSE 79; TEMP 97
== END 2024-03-20 05:42 | disposition short-term general hospital (02) | DRG 772 ==
LOC: YASAS 13:55 → Y3NR 16:58 → Y3E 03-19 13:14
PROVIDERS: ADMIT Allergy & Immunology; ATTEND Psychiatry & Neurology Pain Medicine
PROC: HZ42ZZZ Group Counseling for Substance Abuse Treatment, Cognitive-Behavioral (ICD-10-PCS; principal; 2024-03-18)
DX: F10.20 Alcohol dependence, uncomplicated (principal); F12.20 Cannabis dependence, uncomplicated; F17.210 Nicotine dependence, cigarettes, uncomplicated; F25.1 Schizoaffective disorder, depressive type; F31.9 Bipolar disorder, unspecified; F10.280 Alcohol dependence with alcohol-induced anxiety disorder; F10.282 Alcohol dependence with alcohol-induced sleep disorder; F10.24 Alcohol dependence with alcohol-induced mood disorder; G47.33 Obstructive sleep apnea (adult) (pediatric); E78.5 Hyperlipidemia, unspecified; I10 Essential (primary) hypertension; M06.862 Other specified rheumatoid arthritis, left knee; M06.861 Other specified rheumatoid arthritis, right knee; Z56.0 Unemployment, unspecified; Z59.00 Homelessness unspecified
CPT/HCPCS: 36415; 80053; 80305; 80307; 85027; 86780; 87811

== ENCOUNTER 2024-04-16 16:00 | Inpatient (IN) | payer OTHER ==
[2024-04-16 17:03] VITALS: BMI 36.9
[2024-04-16] MEDS ORDERED: ACETAMINOPHEN 325 MG TABLET (FP) PO PRN (18:13)
[2024-04-16] MEDS ORDERED: BENZOCAINE/MENTHOL (CHLORASEPTIC ) LOZENGE MM PRN (18:13)
[2024-04-16] MEDS ORDERED: ONDANSETRON *ODT* 4 MG TABLET SL PRN (18:13)
[2024-04-16] MEDS ORDERED: guaiFENesin 600 MG TABLET.ER (FP) PO PRN (18:13)
[2024-04-16] MEDS ORDERED: POLYETHYLENE GLYCOL (HEALTHYLAX) 3350 17 GM PACKET PO PRN (18:13)
[2024-04-16] MEDS ORDERED: DICYCLOMINE HCL 10 MG CAPSULE PO PRN (18:13)
[2024-04-16] MEDS ORDERED: BISMUTH SUBSALICYLATE 524 MG/30 ML PO PRN (18:13)
[2024-04-16] MEDS ORDERED: BENZONATATE 200 MG CAPSULE PO PRN (18:13)
[2024-04-16] MEDS ORDERED: MAG HYDROX/AL HYDROX/SIMETH 30 ML UNIT-DOSE CUP PO PRN (18:13)
[2024-04-16] MEDS ORDERED: MAGNESIUM HYDROX 2400MG/30ML ORAL SUSPENSION 30 ML CUP PO PRN (18:13)
[2024-04-16] MEDS ORDERED: LOPERAMIDE HCL 2 MG CAPSULE PO PRN (18:13)
[2024-04-16] MEDS: IBUPROFEN 600 MG TABLET (FP) PO PRN (19:29)
[2024-04-16] MEDS: METHOCARBAMOL 500 MG TABLET PO PRN (22:05)
[2024-04-16] MEDS: THIAMINE 100 MG TABLET PO SCH (22:05)
[2024-04-16] MEDS: MELATONIN 5 MG TABLETS PO SCH (22:05)
[2024-04-17] MEDS: FOLIC ACID 1 MG TABLET (FP) PO SCH (09:40)
[2024-04-17] MEDS: hydrOXYzine PAMOATE 25 MG CAPSULE (FP) PO PRN (09:40)
[2024-04-17] MEDS: amLODIPine BESYLATE 5 MG TABLET (FP) PO SCH (09:40)
[2024-04-17] MEDS: PRENATAL VITAMINS W/ FOLIC ACID TABLET (FP) PO SCH (09:41)
[2024-04-17] MEDS: ARIPiprazole 5 MG TABLET PO SCH (12:33)
[2024-04-20 06:16] VITALS: TEMP 97.8
[2024-04-20] MEDS: IBUPROFEN 400 MG TABLET (FP) PO PRN (11:49)
[2024-04-20 13:15] VITALS: BP 104/64; PULSE 72; RESP 16
== END 2024-04-20 13:38 | disposition other institution (70) | DRG 775 ==
LOC: YASAS 16:00 → Y3N 19:00
PROVIDERS: ADMIT Allergy & Immunology; ATTEND Surgery
PROC: HZ2ZZZZ Detoxification Services for Substance Abuse Treatment (ICD-10-PCS; principal; 2024-04-16)
DX: F10.230 Alcohol dependence with withdrawal, uncomplicated (principal); F12.20 Cannabis dependence, uncomplicated; F17.210 Nicotine dependence, cigarettes, uncomplicated; F25.0 Schizoaffective disorder, bipolar type; G47.33 Obstructive sleep apnea (adult) (pediatric); I10 Essential (primary) hypertension; E78.5 Hyperlipidemia, unspecified; M06.9 Rheumatoid arthritis, unspecified; Z91.148 Patient's other noncompliance with medication regimen for other reason; Z56.0 Unemployment, unspecified; Z59.00 Homelessness unspecified
CPT/HCPCS: 80305; 80307; 87811

== ENCOUNTER 2024-05-30 12:03 | Inpatient (IN) | payer OTHER ==
[2024-05-30 12:54] VITALS: BMI 36.3
[2024-05-30] MEDS ORDERED: ONDANSETRON *ODT* 4 MG TABLET SL PRN (13:10)
[2024-05-30] MEDS ORDERED: BISMUTH SUBSALICYLATE 524 MG/30 ML PO PRN (13:10)
[2024-05-30] MEDS ORDERED: P-EPHED 60MG/TRIPROLIDI 2.5MG TABLET PO PRN (13:10)
[2024-05-30] MEDS ORDERED: DICYCLOMINE HCL 10 MG CAPSULE PO PRN (13:10)
[2024-05-30] MEDS ORDERED: MAGNESIUM HYDROX 2400MG/30ML ORAL SUSPENSION 30 ML CUP PO PRN (13:10)
[2024-05-30] MEDS ORDERED: POLYETHYLENE GLYCOL (HEALTHYLAX) 3350 17 GM PACKET PO PRN (13:10)
[2024-05-30] MEDS ORDERED: LOPERAMIDE HCL 2 MG CAPSULE PO PRN (13:10)
[2024-05-30] MEDS ORDERED: NICOTINE POLACRILEX 2 MG LOZENGE BC PRN (13:10)
[2024-05-30] MEDS ORDERED: BENZONATATE 200 MG CAPSULE PO PRN (13:10)
[2024-05-30] MEDS ORDERED: MAG HYDROX/AL HYDROX/SIMETH 30 ML UNIT-DOSE CUP PO PRN (13:10)
[2024-05-30] MEDS ORDERED: ACETAMINOPHEN 325 MG TABLET (FP) PO PRN (13:10)
[2024-05-30] MEDS ORDERED: guaiFENesin 600 MG TABLET.ER (FP) PO PRN (13:10)
[2024-05-30] MEDS ORDERED: NICOTINE POLACRILEX 2 MG GUM BUC PRN (13:10)
[2024-05-30] MEDS ORDERED: BENZOCAINE/MENTHOL (CHLORASEPTIC ) LOZENGE MM PRN (13:10)
[2024-05-30] MEDS ORDERED: amLODIPine BESYLATE 5 MG TABLET (FP) PO SCH (14:45)
[2024-05-30] MEDS: amLODIPine BESYLATE 5 MG TABLET (FP) PO ONE (14:54)
[2024-05-30] MEDS: amLODIPine BESYLATE 5 MG TABLET (FP) PO SCH (14:54)
[2024-05-30] MEDS: MELATONIN 5 MG TABLETS PO SCH (22:41)
[2024-05-30] MEDS: THIAMINE 100 MG TABLET PO SCH (22:42)
[2024-05-30] MEDS: hydrOXYzine PAMOATE 25 MG CAPSULE (FP) PO PRN (22:42)
[2024-05-30] MEDS: METHOCARBAMOL 500 MG TABLET PO PRN (22:42)
[2024-05-31] MEDS: IBUPROFEN 600 MG TABLET (FP) PO PRN (00:12)
[2024-05-31] MEDS: PRENATAL VITAMINS W/ FOLIC ACID TABLET (FP) PO SCH (09:24)
[2024-05-31] MEDS: FOLIC ACID 1 MG TABLET (FP) PO SCH (09:24)
[2024-05-31] MEDS ORDERED: chlordiazePOXIDE HCL 25 MG CAPSULE PO PRN (09:55)
[2024-05-31] MEDS: chlordiazePOXIDE HCL 25 MG CAPSULE PO SCH (10:20)
[2024-05-31] MEDS ORDERED: cloNIDine HCL 0.1 MG TABLET PO PRN (15:13)
[2024-05-31] MEDS: cloNIDine HCL 0.1 MG TABLET PO PRN (15:31)
[2024-06-01] MEDS: ARIPiprazole 10 MG TABLET PO SCH (10:17)
[2024-06-01] MEDS: IBUPROFEN 400 MG TABLET (FP) PO PRN (17:22)
[2024-06-02] MEDS: chlordiazePOXIDE HCL 25 MG CAPSULE PO SCH (05:15)
[2024-06-03] MEDS ORDERED: chlordiazePOXIDE HCL 10 MG CAPSULE PO PRN
[2024-06-03] MEDS: chlordiazePOXIDE HCL 10 MG CAPSULE PO SCH (05:19)
[2024-06-03 11:35] LABS: POTASSIUM 4.1 mmol/L (3.5-5.1)
[2024-06-03 11:39] LABS: HEMATOCRIT 40.5 % (35.4-49); HEMOGLOBIN 13.6 GM/dL (11.7-16.9); MCH 29.6 pg (25.7-33.7); MCHC 33.5 g/dl (32.0-35.9); MEAN CELL VOLUME 88.2 fl (80-96); MEAN PLT VOLUME 10.1 fl (7.5-11.1); PLATELET COUNT 245 10^3/uL (134-434); RBC 4.59 M/mm3 (4.00-5.60); WHITE BLOOD COUNT 6.8 K/mm3 (4.0-10.0)
[2024-06-03 11:43] LABS: ALBUMIN 3.4 g/dl (3.4-5.0); BLOOD UREA NITROGEN 10.2 mg/dL (7-18)
[2024-06-03 11:46] LABS: CREATININE 0.8 mg/dL (0.55-1.3)
[2024-06-03 11:47] LABS: BILIRUBIN,TOTAL 0.2 mg/dL (0.2-1); TOT PROT 6.6 g/dl (6.4-8.2)
[2024-06-03] MEDS: amLODIPine BESYLATE 5 MG TABLET (FP) PO ONE (17:16)
[2024-06-04] MEDS: chlordiazePOXIDE HCL 10 MG CAPSULE PO SCH (05:54)
[2024-06-05] MEDS: chlordiazePOXIDE HCL 10 MG CAPSULE PO ONE (05:55)
[2024-06-05 09:04] VITALS: BP 151/96; PULSE 95; RESP 20; TEMP 97.8
== END 2024-06-05 09:23 | disposition home or self-care (01) | DRG 775 ==
LOC: YASAS 12:03 → Y3N 13:34
PROVIDERS: ADMIT Allergy & Immunology; ATTEND Surgery
PROC: HZ2ZZZZ Detoxification Services for Substance Abuse Treatment (ICD-10-PCS; principal; 2024-05-30)
DX: F10.230 Alcohol dependence with withdrawal, uncomplicated (principal); F12.20 Cannabis dependence, uncomplicated; F17.210 Nicotine dependence, cigarettes, uncomplicated; F25.0 Schizoaffective disorder, bipolar type; I10 Essential (primary) hypertension; G47.33 Obstructive sleep apnea (adult) (pediatric); E78.5 Hyperlipidemia, unspecified; M06.9 Rheumatoid arthritis, unspecified; Z91.148 Patient's other noncompliance with medication regimen for other reason; Z91.51 Personal history of suicidal behavior; Z56.0 Unemployment, unspecified; Z59.00 Homelessness unspecified
CPT/HCPCS: 36415; 80053; 80305; 80307; 85027; 86780

== ENCOUNTER 2024-07-20 09:57 | Inpatient (IN) | payer OTHER ==
[2024-07-20 10:30] VITALS: BMI 36.3
[2024-07-20] MEDS ORDERED: ONDANSETRON *ODT* 4 MG TABLET SL PRN (13:04)
[2024-07-20] MEDS ORDERED: IBUPROFEN 600 MG TABLET (FP) PO PRN (13:04)
[2024-07-20] MEDS ORDERED: POLYETHYLENE GLYCOL (HEALTHYLAX) 3350 17 GM PACKET PO PRN (13:04)
[2024-07-20] MEDS ORDERED: NALOXONE (NARCAN) HCL 4 MG/0.1 ML SPRAY NS PRN (13:04)
[2024-07-20] MEDS ORDERED: ACETAMINOPHEN 325 MG TABLET (FP) PO PRN (13:04)
[2024-07-20] MEDS ORDERED: MAG HYDROX/AL HYDROX/SIMETH 30 ML UNIT-DOSE CUP PO PRN (13:04)
[2024-07-20] MEDS ORDERED: BENZONATATE 200 MG CAPSULE PO PRN (13:04)
[2024-07-20] MEDS ORDERED: LOPERAMIDE HCL 2 MG CAPSULE PO PRN (13:04)
[2024-07-20] MEDS ORDERED: MAGNESIUM HYDROX 2400MG/30ML ORAL SUSPENSION 30 ML CUP PO PRN (13:04)
[2024-07-20] MEDS ORDERED: IBUPROFEN 400 MG TABLET (FP) PO PRN (13:04)
[2024-07-20] MEDS ORDERED: NALOXONE HCL 0.4 MG/ML VIAL IM PRN (13:04)
[2024-07-20] MEDS ORDERED: BENZOCAINE/MENTHOL (CHLORASEPTIC ) LOZENGE MM PRN (13:04)
[2024-07-20] MEDS ORDERED: BISMUTH SUBSALICYLATE 524 MG/30 ML PO PRN (13:04)
[2024-07-20] MEDS ORDERED: guaiFENesin 600 MG TABLET.ER (FP) PO PRN (13:04)
[2024-07-20] MEDS ORDERED: DICYCLOMINE HCL 10 MG CAPSULE PO PRN (13:04)
[2024-07-20] MEDS ORDERED: chlordiazePOXIDE HCL 25 MG CAPSULE PO PRN (13:47)
[2024-07-20] MEDS: hydrOXYzine PAMOATE 25 MG CAPSULE (FP) PO PRN (14:29)
[2024-07-20] MEDS: chlordiazePOXIDE HCL 25 MG CAPSULE PO SCH (17:35)
[2024-07-20] MEDS: THIAMINE 100 MG TABLET PO SCH (22:18)
[2024-07-20] MEDS: METHOCARBAMOL 500 MG TABLET PO PRN (22:19)
[2024-07-20] MEDS: MELATONIN 5 MG TABLETS PO SCH (22:19)
[2024-07-21] MEDS: PRENATAL VITAMINS W/ FOLIC ACID TABLET (FP) PO SCH (09:45)
[2024-07-21 14:41] LABS: CHLORIDE 108 mmol/L (98-107); POTASSIUM 4.3 mmol/L (3.5-5.1); SODIUM 141 mmol/L (136-145)
[2024-07-21 14:45] LABS: HEMATOCRIT 46.9 % (35.4-49); HEMOGLOBIN 15.3 GM/dL (11.7-16.9); MCHC 32.5 g/dl (32.0-35.9); MEAN CELL VOLUME 89.2 fl (80-96); MEAN PLT VOLUME 9.3 fl (7.5-11.1); PLATELET COUNT 220 10^3/uL (134-434); RBC 5.26 M/mm3 (4.00-5.60); RDW 13.3 % (11.9-15.9)
[2024-07-21 14:52] LABS: CALCIUM 9.3 mg/dL (8.5-10.1)
[2024-07-21 14:53] LABS: ALBUMIN 3.7 g/dl (3.4-5.0); ANION GAP 7 mmol/L (4-13); BLOOD UREA NITROGEN 19.8 mg/dL (7-18); CO2 26 mmol/L (21-32); GLUCOSE,RANDOM 84 mg/dL (74-106)
[2024-07-21 14:55] LABS: SGPT/ALT 37 U/L (13-61)
[2024-07-21 14:56] LABS: CREATININE 0.8 mg/dL (0.55-1.3)
[2024-07-21 14:57] LABS: BILIRUBIN,TOTAL 0.5 mg/dL (0.2-1); TOT PROT 6.8 g/dl (6.4-8.2)
[2024-07-21 14:58] LABS: ALK PHOS 70 U/L (45-117)
[2024-07-21 15:01] LABS: SGOT/AST 20 U/L (15-37)
[2024-07-22] MEDS: chlordiazePOXIDE HCL 25 MG CAPSULE PO SCH (05:18)
[2024-07-22] MEDS: ARIPiprazole 10 MG TABLET PO SCH (10:06)
[2024-07-23] MEDS ORDERED: chlordiazePOXIDE HCL 10 MG CAPSULE PO PRN
[2024-07-23] MEDS: chlordiazePOXIDE HCL 10 MG CAPSULE PO SCH (05:32)
[2024-07-24] MEDS: chlordiazePOXIDE HCL 10 MG CAPSULE PO SCH (05:42)
[2024-07-24] MEDS: QUEtiapine FUMARATE 50 MG TABLET PO ONE (18:55)
[2024-07-25] MEDS: chlordiazePOXIDE HCL 10 MG CAPSULE PO ONE (05:46)
[2024-07-25] MEDS: ARIPiprazole 10 MG TABLET PO SCH (09:57)
[2024-07-25] MEDS ORDERED: SERTRALINE HCL 50 MG TABLET (FP) PO SCH (10:00)
[2024-07-26 09:06] VITALS: BP 137/91; PULSE 84; RESP 18; TEMP 98.8
== END 2024-07-26 10:27 | disposition other institution (70) | DRG 775 ==
LOC: YASAS 09:57 → Y3N 13:38 → Y3NR 07-24 18:48 → Y3N 07-25 11:50
PROVIDERS: ADMIT Allergy & Immunology; ATTEND Surgery
PROC: HZ2ZZZZ Detoxification Services for Substance Abuse Treatment (ICD-10-PCS; principal; 2024-07-20)
DX: F10.230 Alcohol dependence with withdrawal, uncomplicated (principal); F12.20 Cannabis dependence, uncomplicated; F17.210 Nicotine dependence, cigarettes, uncomplicated; F25.0 Schizoaffective disorder, bipolar type; F23 Brief psychotic disorder; F10.24 Alcohol dependence with alcohol-induced mood disorder; G47.33 Obstructive sleep apnea (adult) (pediatric); E78.5 Hyperlipidemia, unspecified; I10 Essential (primary) hypertension; Z56.0 Unemployment, unspecified; Z59.00 Homelessness unspecified
CPT/HCPCS: 36415; 80053; 80305; 80307; 85027; 86780; 93005; 93010

== ENCOUNTER 2024-10-07 17:44 | Inpatient (IN) | payer OTHER ==
[2024-10-07 18:23] VITALS: BMI 36.8
[2024-10-07] MEDS ORDERED: diazePAM 5 MG TABLET PO PRN (18:43)
[2024-10-07] MEDS ORDERED: IBUPROFEN 400 MG TABLET (FP) PO PRN (18:45)
[2024-10-07] MEDS ORDERED: BISMUTH SUBSALICYLATE 524 MG/30 ML PO PRN (18:45)
[2024-10-07] MEDS ORDERED: ONDANSETRON *ODT* 4 MG TABLET SL PRN (18:45)
[2024-10-07] MEDS ORDERED: MAG HYDROX/AL HYDROX/SIMETH 30 ML UNIT-DOSE CUP PO PRN (18:45)
[2024-10-07] MEDS ORDERED: ACETAMINOPHEN 325 MG TABLET (FP) PO PRN (18:45)
[2024-10-07] MEDS ORDERED: guaiFENesin 600 MG TABLET.ER (FP) PO PRN (18:45)
[2024-10-07] MEDS ORDERED: IBUPROFEN 600 MG TABLET (FP) PO PRN (18:45)
[2024-10-07] MEDS ORDERED: LOPERAMIDE HCL 2 MG CAPSULE PO PRN (18:45)
[2024-10-07] MEDS ORDERED: BENZOCAINE/MENTHOL (CHLORASEPTIC ) LOZENGE MM PRN (18:45)
[2024-10-07] MEDS ORDERED: METHOCARBAMOL 500 MG TABLET PO PRN (18:45)
[2024-10-07] MEDS ORDERED: DICYCLOMINE HCL 10 MG CAPSULE PO PRN (18:45)
[2024-10-07] MEDS ORDERED: BENZONATATE 200 MG CAPSULE PO PRN (18:45)
[2024-10-07] MEDS ORDERED: POLYETHYLENE GLYCOL (HEALTHYLAX) 3350 17 GM PACKET PO PRN (18:45)
[2024-10-07] MEDS ORDERED: MAGNESIUM HYDROX 2400MG/30ML ORAL SUSPENSION 30 ML CUP PO PRN (18:45)
[2024-10-07] MEDS: diazePAM 5 MG TABLET PO SCH (22:28)
[2024-10-07] MEDS: THIAMINE 100 MG TABLET PO SCH (22:29)
[2024-10-07] MEDS: MELATONIN 5 MG TABLETS PO SCH (22:29)
[2024-10-08] MEDS: diazePAM 5 MG TABLET PO SCH (06:15)
[2024-10-08 06:44] VITALS: BP 120/68; PULSE 60; RESP 17; TEMP 97.1
[2024-10-08] MEDS: PRENATAL VITAMINS W/ FOLIC ACID TABLET (FP) PO SCH (09:10)
[2024-10-08] MEDS: NALOXONE (NYS OPIOID OVERDOSE PROGRAM) 4 MG/0.1 ML SPRAY NS SCH (09:10)
[2024-10-09] MEDS ORDERED: diazePAM 5 MG TABLET PO SCH (06:00)
[2024-10-10] MEDS ORDERED: diazePAM 5 MG TABLET PO ONE (06:00)
== END 2024-10-08 09:17 | disposition left against medical advice (07) | DRG 770 ==
LOC: YASAS 17:44 → Y3N 19:14
PROVIDERS: ADMIT Allergy & Immunology; ATTEND Surgery
PROC: HZ2ZZZZ Detoxification Services for Substance Abuse Treatment (ICD-10-PCS; principal; 2024-10-07)
DX: F10.230 Alcohol dependence with withdrawal, uncomplicated (principal); F12.20 Cannabis dependence, uncomplicated; F17.210 Nicotine dependence, cigarettes, uncomplicated; F25.0 Schizoaffective disorder, bipolar type; I10 Essential (primary) hypertension; E78.5 Hyperlipidemia, unspecified; G47.33 Obstructive sleep apnea (adult) (pediatric); M17.0 Bilateral primary osteoarthritis of knee; Z56.0 Unemployment, unspecified; Z59.01 Sheltered homelessness

== ENCOUNTER 2024-10-26 11:17 | Inpatient (IN) | payer OTHER ==
[2024-10-26 11:49] VITALS: BMI 34.7
[2024-10-26] MEDS ORDERED: guaiFENesin 600 MG TABLET.ER (FP) PO PRN (13:05)
[2024-10-26] MEDS ORDERED: ACETAMINOPHEN 325 MG TABLET (FP) PO PRN (13:05)
[2024-10-26] MEDS ORDERED: MAG HYDROX/AL HYDROX/SIMETH 30 ML UNIT-DOSE CUP PO PRN (13:05)
[2024-10-26] MEDS ORDERED: POLYETHYLENE GLYCOL (HEALTHYLAX) 3350 17 GM PACKET PO PRN (13:05)
[2024-10-26] MEDS ORDERED: MAGNESIUM HYDROX 2400MG/30ML ORAL SUSPENSION 30 ML CUP PO PRN (13:05)
[2024-10-26] MEDS ORDERED: BENZONATATE 200 MG CAPSULE PO PRN (13:05)
[2024-10-26] MEDS ORDERED: LOPERAMIDE HCL 2 MG CAPSULE PO PRN (13:05)
[2024-10-26] MEDS ORDERED: IBUPROFEN 400 MG TABLET (FP) PO PRN (13:05)
[2024-10-26] MEDS ORDERED: NICOTINE POLACRILEX 2 MG GUM BUC PRN (13:05)
[2024-10-26] MEDS ORDERED: NALOXONE (NARCAN) HCL 4 MG/0.1 ML SPRAY NS PRN (13:05)
[2024-10-26] MEDS ORDERED: BENZOCAINE/MENTHOL (CHLORASEPTIC ) LOZENGE MM PRN (13:05)
[2024-10-26] MEDS ORDERED: IBUPROFEN 600 MG TABLET (FP) PO PRN (13:05)
[2024-10-26] MEDS: TUBERCULIN PPD 5 TU/0.1ML SYRINGE (IN PATIENT USE ONLY) ID ONE (17:05)
[2024-10-26] MEDS: THIAMINE 100 MG TABLET PO SCH (21:30)
[2024-10-26] MEDS: hydrOXYzine PAMOATE 25 MG CAPSULE (FP) PO PRN (21:30)
[2024-10-26] MEDS: MELATONIN 5 MG TABLETS PO SCH (21:30)
[2024-10-27] MEDS: PRENATAL VITAMINS W/ FOLIC ACID TABLET (FP) PO SCH (09:26)
[2024-10-27] MEDS: amLODIPine BESYLATE 5 MG TABLET (FP) PO SCH (09:26)
[2024-10-27 10:33] LABS: HEMATOCRIT 47.5 % (35.4-49); HEMOGLOBIN 15.5 GM/dL (11.7-16.9); MCH 28.9 pg (25.7-33.7); MCHC 32.8 g/dl (32.0-35.9); MEAN CELL VOLUME 88.1 fl (80-96); MEAN PLT VOLUME 9.7 fl (7.5-11.1); PLATELET COUNT 245 10^3/uL (134-434); RBC 5.39 M/mm3 (4.00-5.60); RDW 14.1 % (11.9-15.9); WHITE BLOOD COUNT 5.4 K/mm3 (4.0-10.0)
[2024-10-27 10:40] LABS: CHLORIDE 107 mmol/L (98-107); POTASSIUM 4.8 mmol/L (3.5-5.1); SODIUM 140 mmol/L (136-145)
[2024-10-27 10:43] LABS: CALCIUM 9.7 mg/dL (8.5-10.1)
[2024-10-27 10:45] LABS: ALBUMIN 3.5 g/dl (3.4-5.0); ANION GAP 3 mmol/L (4-13); BLOOD UREA NITROGEN 15.1 mg/dL (7-18); CO2 30 mmol/L (21-32); GLUCOSE,RANDOM 75 mg/dL (74-106)
[2024-10-27 10:48] LABS: CREATININE 0.9 mg/dL (0.55-1.3); SGOT/AST 24 U/L (15-37); SGPT/ALT 45 U/L (13-61)
[2024-10-27 10:50] LABS: BILIRUBIN,TOTAL 0.4 mg/dL (0.2-1); TOT PROT 6.7 g/dl (6.4-8.2)
[2024-10-27 10:51] LABS: ALK PHOS 61 U/L (45-117)
[2024-10-27] MEDS: DIVALPROEX SODIUM 500 MG TABLET E.C. PO SCH (21:29)
[2024-10-28 06:11] VITALS: RESP 16
[2024-10-28 09:31] VITALS: BP 134/87; PULSE 90; TEMP 97.7
[2024-10-28] MEDS: ARIPiprazole 10 MG TABLET PO SCH (09:31)
== END 2024-10-28 14:25 | disposition left against medical advice (07) | DRG 770 ==
LOC: YASAS 11:17 → Y3NR 13:22
PROVIDERS: ADMIT Psychiatry & Neurology Pain Medicine; ATTEND Psychiatry & Neurology Pain Medicine
PROC: HZ42ZZZ Group Counseling for Substance Abuse Treatment, Cognitive-Behavioral (ICD-10-PCS; principal; 2024-10-26)
DX: F10.20 Alcohol dependence, uncomplicated (principal); F12.20 Cannabis dependence, uncomplicated; F17.210 Nicotine dependence, cigarettes, uncomplicated; F31.9 Bipolar disorder, unspecified; F25.0 Schizoaffective disorder, bipolar type; F10.282 Alcohol dependence with alcohol-induced sleep disorder; G47.33 Obstructive sleep apnea (adult) (pediatric); E78.5 Hyperlipidemia, unspecified; I10 Essential (primary) hypertension; M06.9 Rheumatoid arthritis, unspecified; M17.0 Bilateral primary osteoarthritis of knee; M19.071 Primary osteoarthritis, right ankle and foot; M19.072 Primary osteoarthritis, left ankle and foot
CPT/HCPCS: 36415; 80053; 80305; 80307; 85027; 86780; 87811

== ENCOUNTER 2025-08-20 11:37 | Inpatient (IN) | payer OTHER ==
[2025-08-20 12:02] VITALS: BMI 37.7
[2025-08-20] MEDS ORDERED: hydrOXYzine PAMOATE 25 MG CAPSULE (FP) PO PRN ×2 (12:55→15:30)
[2025-08-20] MEDS ORDERED: BENZOCAINE/MENTHOL (CHLORASEPTIC ) LOZENGE MM PRN (12:55)
[2025-08-20] MEDS ORDERED: MAG HYDROX/AL HYDROX/SIMETH 30 ML UNIT-DOSE CUP PO PRN (12:55)
[2025-08-20] MEDS ORDERED: NICOTINE POLACRILEX 2 MG LOZENGE BC PRN (12:55)
[2025-08-20] MEDS ORDERED: IBUPROFEN 600 MG TABLET (FP) PO PRN (12:55)
[2025-08-20] MEDS ORDERED: NALOXONE (NARCAN) HCL 4 MG/0.1 ML SPRAY NS PRN (12:55)
[2025-08-20] MEDS ORDERED: ACETAMINOPHEN 325 MG TABLET (FP) PO PRN (12:55)
[2025-08-20] MEDS ORDERED: IBUPROFEN 400 MG TABLET (FP) PO PRN (12:55)
[2025-08-20] MEDS ORDERED: POLYETHYLENE GLYCOL (HEALTHYLAX) 3350 17 GM PACKET PO PRN (12:55)
[2025-08-20] MEDS ORDERED: guaiFENesin 600 MG TABLET.ER (FP) PO PRN (12:55)
[2025-08-20] MEDS ORDERED: MAGNESIUM HYDROX 2400MG/30ML ORAL SUSPENSION 30 ML CUP PO PRN (12:55)
[2025-08-20] MEDS ORDERED: BENZONATATE 200 MG CAPSULE PO PRN (12:55)
[2025-08-20] MEDS ORDERED: P-EPHED 60MG/TRIPROLIDI 2.5MG TABLET PO PRN (12:55)
[2025-08-20] MEDS ORDERED: NICOTINE POLACRILEX 2 MG GUM BUC PRN (12:55)
[2025-08-20] MEDS ORDERED: LOPERAMIDE HCL 2 MG CAPSULE PO PRN (12:55)
[2025-08-20 15:17] VITALS: BP 130/79; PULSE 81; RESP 18; TEMP 97.1
[2025-08-20] MEDS: DIVALPROEX SODIUM 500 MG TABLET E.C. PO ONE (15:56)
[2025-08-20 19:01] LABS: URINE APPEARANCE CLEAR; URINE BILIRUBIN NEGATIVE (NEGATIVE); URINE COLOR YELLOW; URINE GLUCOSE (UA) NEGATIVE (NEGATIVE); URINE KETONE NEGATIVE (NEGATIVE); URINE LEUK ESTERASE NEGATIVE (NEGATIVE); URINE NITRITE NEGATIVE (NEGATIVE); URINE PROTEIN NEGATIVE (NEGATIVE); URINE UROBILINOGEN 0.2 mg/dL (0.2-1.0)
[2025-08-20] MEDS: THIAMINE 100 MG TABLET PO SCH (21:09)
[2025-08-20] MEDS: LIDOCAINE PATCH REMOVAL MC SCH (21:10)
[2025-08-20] MEDS: DIVALPROEX SODIUM 500 MG TABLET E.C. PO SCH (21:10)
[2025-08-20] MEDS: ATORVASTATIN CA 40 MG TABLET (FP) PO SCH (21:10)
[2025-08-20] MEDS: MELATONIN 5 MG TABLETS PO SCH (21:11)
[2025-08-21] MEDS ORDERED: amLODIPine BESYLATE 5 MG TABLET (FP) PO SCH (10:00)
[2025-08-21] MEDS ORDERED: PRENATAL VITAMINS W/ FOLIC ACID TABLET (FP) PO SCH (10:00)
[2025-08-21] MEDS ORDERED: LIDOCAINE 5% TOPICAL PATCH TP SCH (10:00)
== END 2025-08-21 06:05 | disposition left against medical advice (07) | DRG 772 ==
LOC: YASAS 11:37 → Y3W 14:27
PROVIDERS: ADMIT Neuromusculoskeletal Medicine & OMM; ATTEND Psychiatry & Neurology Pain Medicine
PROC: HZ42ZZZ Group Counseling for Substance Abuse Treatment, Cognitive-Behavioral (ICD-10-PCS; principal; 2025-08-20)
DX: F10.20 Alcohol dependence, uncomplicated (principal); F12.20 Cannabis dependence, uncomplicated; F17.210 Nicotine dependence, cigarettes, uncomplicated; F25.9 Schizoaffective disorder, unspecified; F31.9 Bipolar disorder, unspecified; G47.33 Obstructive sleep apnea (adult) (pediatric); E78.5 Hyperlipidemia, unspecified; I10 Essential (primary) hypertension; F91.8 Other conduct disorders; Z91.199 Patient's noncompliance with other medical treatment and regimen due to unspecified reason
CPT/HCPCS: 81003